=== PATIENT | female | born 1990 | race Native Hawaiian/Other Pacific Islander ===

== ENCOUNTER → 2017-05-14 | Outpatient (CLI) | payer OTHER ==
--- NOTE | 2017-05-14 11:51 | Diagnostic Imaging Report ---
PROCEDURE: US OB SINGLE FETUS <14 WKS. TECHNIQUE: Multiple real-time grayscale images were obtained over the gravid uterus in various projections. INDICATION: Vaginal spotting, threatened miscarriage. FINDINGS; There is an intrauterine fluid collection compatible with a gestational sac. Yolk sac is present. A pole is present with a crown rump length of 0.74 cm with an estimated age of 6 weeks 5 days. cardiac activity is 120 beats per minutes. No suggestion for abnormal perigestational fluid collections. The ovaries are not visualized. IMPRESSION: Findings compatible with early viable intrauterine , estimated age 6 weeks 5 days for an estimated date of delivery January 02, 2018. Dictated by: Dictated on workstation # [id number]
== END ==
LOC: RAD 10:47
PROVIDERS: ATTEND Family Medicine
DX: O20.0 Threatened abortion (principal); Z3A.01 Less than 8 weeks gestation of pregnancy
CPT/HCPCS: 76801

== ENCOUNTER → 2017-09-03 | Outpatient (CLI) | payer OTHER ==
--- NOTE | 2017-09-03 14:37 | Diagnostic Imaging Report ---
INDICATION: survey. TECHNIQUE: Multiple real-time grayscale images were obtained over the gravid uterus. COMPARISON: 05/14/2017 FINDINGS: Single live intrauterine fetus is seen measuring 22 weeks 0 days in size, this is within a few days of the expected dates. Fetus is in breech presentation at this time. Amniotic fluid is borderline low with index of 7.4 cm. The placenta is grade 1 and anterior with no evidence of previa. heart rate is 167 beats per minute. survey showed no detectable abnormalities although four-chamber heart view and spine and cord insertion were not well seen due to positioning. kidneys and bladder, stomach and ventricles and three-vessel cord were all unremarkable. Biometrical measurements are as follows: Biparietal 5.3 cm, age 22 weeks 0 days. Head circumference 20.5 cm, age 22 weeks 4 days. Abdominal circumference 16.4 cm, age 21 weeks 4 days. Femur length 3.7 cm, age 21 weeks 6 days. Sonographic estimate age: 22 weeks 0 days. Sonographic estimated date of delivery: 01/07/18. Estimated Weight: 445 gm (+/- 65 gm). LMP percentile: 11%. heart rate: 167 beats per minute. number: 1 of 1. IMPRESSION: Single live intrauterine fetus measuring 22 weeks 0 days in size, dates are within a few days expected from previous dates. survey showed no detectable abnormality although there was some limitation as above with four-chamber heart view and spine and cord insertion not well-seen on this study. Consider limited followup as clinically warranted. Amniotic fluid index was borderline at 7.4 cm. Dictated by: Dictated on workstation # [id number]
== END ==
LOC: RAD 11:01
PROVIDERS: ATTEND Family Medicine
DX: Z34.92 Encounter for supervision of normal pregnancy, unspecified, second trimester (principal); Z3A.22 22 weeks gestation of pregnancy
CPT/HCPCS: 76805

== ENCOUNTER → 2017-10-06 | Outpatient (CLI) | payer OTHER ==
--- NOTE | 2017-10-06 12:18 | Diagnostic Imaging Report ---
INDICATION: Followup exam. TECHNIQUE: Multiple Real-time grayscale images were obtained over the gravid uterus. COMPARISON: 05/14/2017 and 09/03/2017. FINDINGS: The previous OB ultrasound exam of 09/03/2017 noted a single live fetus of approximately 22 weeks gestation plus/minus 1 week. There were no abnormalities identified but the four-chamber heart view, spine, and cord insertion were not well visualized. On this exam, the four-chamber heart view and the spine were identified and appear to be within normal limits. The cord insertion is still difficult to assess due to the position. The fetus is now in breech presentation. heart motion was noted and a rate of 140 BPM was recorded. On the prior exam, the amniotic fluid index was just below the normal limits at 7.4. The amniotic fluid index has increased since the prior exam and is now 14.4 (normal 8 to 22 cm). The placenta is anterior and there is no previa. The growth parameters were not obtained for today's study. IMPRESSION: 1. There is a single live fetus in breech presentation at approximately 27 weeks 2 days gestation plus/minus 1 week. The EDC is 01/02/2018. 2. There were no abnormalities identified. In particular, the four chamber heart and spine are within normal limits; however, the cord insertion is still difficult to visualize due to the position. 3. The amniotic fluid volume is now well within normal limits. Dictated by: Dictated on workstation # [id number]
== END ==
LOC: RAD 10:09
PROVIDERS: ATTEND Family Medicine
DX: Z34.02 Encounter for supervision of normal first pregnancy, second trimester (principal); Z3A.27 27 weeks gestation of pregnancy
CPT/HCPCS: 76816

== ENCOUNTER → 2017-10-08 | Outpatient (CLI) | payer SELFPAY | LOC: LAB 09:27 | PROVIDERS: ATTEND Family Medicine | DX: O99.810 Abnormal glucose complicating pregnancy (principal) | CPT/HCPCS: 36415; 82951; 82952; 82962 ==

== ENCOUNTER → 2017-11-03 | Outpatient (CLI) | payer OTHER ==
--- NOTE | 2017-11-03 15:33 | Diagnostic Imaging Report ---
INDICATION: Evaluate cord insertion. TECHNIQUE: Multiple real-time grayscale images were obtained over the gravid uterus. FINDINGS: A single live fetus is identified with heart rate recorded at 144 beats per minute. Placenta is anterior. Amniotic fluid volume is normal. cord insertion was visualized today and appears to be within normal limits. IMPRESSION: Unremarkable limited obstetrical ultrasound demonstrating an unremarkable cord insertion. Dictated by: Dictated on workstation # [id number]
== END ==
LOC: RAD 13:00
PROVIDERS: ATTEND Family Medicine
DX: Z36.2 Encounter for other antenatal screening follow-up (principal)
CPT/HCPCS: 76816

== ENCOUNTER → 2017-12-07 | Outpatient (CLI) | payer OTHER ==
--- NOTE | 2017-12-07 17:46 | Diagnostic Imaging Report ---
TIME OF STUDY: 12/07/2017 5:38 PM INDICATION: ANTEPARTUM TACHYCARDIA COMPARISON: 11/03/2017. TECHNIQUE: Transabdominal sonogram was performed. GESTATIONAL AGE: 31 weeks, 3 days. GENERAL EVALUATION: Presentation: Cephalic. Placenta: Anterior Cardiac activity: 155 bpm Amniotic fluid index: The total CLOVIS is 8.6 cm. The largest vertical pocket measures 3.4 cm. BIOPHYSICAL PROFILE SCORING: tone: 2 movement: 2 breathin Amniotic fluid: 2 TOTAL SCORE: 8 out of 8. FINDINGS/IMPRESSION: 1. Single live intrauterine gestation with biophysical profile score of 8 out of 8. No gross abnormalities are detected. heart rate is 155 bpm. Total CLOVIS is 8.6 cm. Dictated by: Dictated on workstation # [id number]
== END ==
LOC: RAD 17:01
PROVIDERS: ATTEND Family Medicine
DX: Z34.93 Encounter for supervision of normal pregnancy, unspecified, third trimester (principal); Z3A.31 31 weeks gestation of pregnancy
CPT/HCPCS: 76819

== ENCOUNTER 2017-12-27 22:03 | Inpatient (IN) | payer OTHER ==
[~2017-12-27] VITALS: Ht 165.1 cm; Wt 105.2 kg
[2017-12-27] MEDS ORDERED: PREN1TAB86 PO (22:14)
[2017-12-27] MEDS ORDERED: OXYTOCIN/NORMAL SALINE 500 ML IV ONE (22:23)
[2017-12-27] MEDS ORDERED: D5 LR IV SOLUTION 1,000 ML IV ONE (22:23)
[2017-12-27 22:25] LABS: BILIRUBIN,URINE NEGATIVE (NEGATIVE); CLARITY,URINE CLEAR; COLOR,URINE YELLOW; GLUCOSE, URINE (UA) NEGATIVE (NEGATIVE); KETONES,URINE NEGATIVE (NEGATIVE); LEUKOCYTE ESTERASE ,URINE 3+ (NEGATIVE); NITRITE,URINE NEGATIVE (NEGATIVE); PH,URINE 6 (5-9); PROTEIN,URINE 1+ (NEGATIVE); UROBILINOGEN,URINE 1 MG/DL (NORMAL)
[2017-12-27] MEDS ORDERED: LIDOCAINE/EPI 2% 1:200,00 (XYLOCAINE) 10 ML VIAL ONE (22:37)
[2017-12-27] MEDS ORDERED: D5 LR IV SOLUTION 1,000 ML IV SCH (22:41)
--- OUTSIDE RECORDS SUMMARY | 2017-12-27 22:44 | XMS REPORT | Continuity of Care Document ---
Author Author [facility] [place] Address Unknown Phone Unavailable Allergies There is no data. Medications There is no data. Problems Date Dx Coded Attending Type Code Diagnosis Diagnosed By 10/01/2013 GAUTAM MCCLAIN DO 789.00 ABDOMINAL PAIN UNSPECIFIED SITE 05/28/2017 MARYA ELY MD Ot O20.0 THREATENED 05/28/2017 MARYA ELY MD Ot Z3A.01 LESS THAN 8 WEEKS GESTATION OF 09/03/2017 MARYA ELY MD Ot O20.0 THREATENED 09/03/2017 MARYA ELY MD Ot Z3A.01 LESS THAN 8 WEEKS GESTATION OF 09/17/2017 MARYA ELY MD Ot Z34.92 ENCNTR FOR SUPRVSN OF NORMAL PREG, UNSP, 09/17/2017 MARYA ELY MD Ot Z3A.22 22 WEEKS GESTATION OF 10/08/2017 MARYA ELY MD Ot O20.0 THREATENED 10/08/2017 MARYA ELY MD Ot Z3A.01 LESS THAN 8 WEEKS GESTATION OF 10/08/2017 MARYA ELY MD Ot Z34.92 ENCNTR FOR SUPRVSN OF NORMAL PREG, UNSP, 10/08/2017 MARYA ELY MD Ot Z3A.22 22 WEEKS GESTATION OF 10/08/2017 MARYA ELY MD Ot Z34.02 ENCNTR FOR SUPRVSN OF NORMAL FIRST PREG, 10/08/2017 MARYA ELY MD Ot Z3A.27 27 WEEKS GESTATION OF 10/09/2017 MARYA ELY MD Ot O99.810 ABNORMAL GLUCOSE COMPLICATING 10/21/2017 MARYA ELY MD Ot Z34.02 ENCNTR FOR SUPRVSN OF NORMAL FIRST PREG, 10/21/2017 MARYA ELY MD Ot Z3A.27 27 WEEKS GESTATION OF 11/03/2017 MARYA ELY MD, Ot O20.0 THREATENED 11/03/2017 MARYA ELY MD, Ot Z3A.01 LESS THAN 8 WEEKS GESTATION OF 11/03/2017 MARYA ELY MD, Ot Z34.92 ENCNTR FOR SUPRVSN OF NORMAL PREG, UNSP, 11/03/2017 MARYA ELY MD, Ot Z3A.22 22 WEEKS GESTATION OF 11/03/2017 MARYA ELY MD, Ot Z34.02 ENCNTR FOR SUPRVSN OF NORMAL FIRST PREG, 11/03/2017 MARYA ELY MD, Ot Z3A.27 27 WEEKS GESTATION OF 11/03/2017 MARYA ELY MD, Ot O99.810 ABNORMAL GLUCOSE COMPLICATING 11/04/2017 MARYA ELY MD, Ot Z36.2 ENCOUNTER FOR OTHER SCREENING 11/18/2017 MARYA ELY MD, Ot Z36.2 ENCOUNTER FOR OTHER SCREENING 12/08/2017 MARYA ELY MD, Ot O36.8390 MATERN CARE FOR ABNLT FETL HRT RATE OR R 12/08/2017 MARYA ELY MD, Ot Z34.93 ENCNTR FOR SUPRVSN OF NORMAL PREG, UNSP, 12/08/2017 MARYA ELY MD, Ot Z3A.31 31 WEEKS GESTATION OF Procedures There is no data. Results Test Result Range Genital Culture, Routine - 05/14/17 13:46 Genital Culture, Routine Note Urine Culture, Routine - 05/14/17 13:46 Urine Culture, Routine Note CULTURE, GENITAL - 05/14/17 13:46 Genital Culture, Routine Final report NRG Result 1 NRG CULTURE, URINE - 05/14/17 13:46 Urine Culture, Routine Final report NRG Result 1 Klebsiella pneumoniae NRG Antimicrobial Susceptibility NRG PDF Report - 05/14/17 13:48 PDF Report1 LCLS NRG Pap Lb, rfx HPV ASCU - 05/14/17 13:48 DIAGNOSIS: Comment Specimen adequacy: Comment Clinician provided ICD10: Comment Performed by: Comment . . Note: Comment . Comment CBC With Differential/Platelet - 06/11/17 14:04 WBC 7.1 x10E3/uL 3.4-10.8 RBC 4.70 x10E6/uL 3.77-5.28 Hemoglobin 12.6 g/dL 11.1-15.9 Hematocrit 37.6 % 34.0-46.6 MCV 80 fL 79-97 MCH 26.8 pg 26.6-33.0 MCHC 33.5 g/dL 31.5-35.7 RDW 15.0 % 12.3-15.4 Platelets 262 x10E3/uL 150-379 Neutrophils 70 % Lymphs 21 % Monocytes 7 % Eos 1 % Basos 1 % Neutrophils (Absolute) 4.9 x10E3/uL 1.4-7.0 Lymphs (Absolute) 1.5 x10E3/uL 0.7-3.1 Monocytes(Absolute) 0.5 x10E3/uL 0.1-0.9 Eos (Absolute) 0.1 x10E3/uL 0.0-0.4 Baso (Absolute) 0.0 x10E3/uL 0.0-0.2 Immature Granulocytes 0 % Immature Grans (Abs) 0.0 x10E3/uL 0.0-0.1 ABO Grouping and Rho(D) Typing - 06/11/17 14:04 ABO Grouping B Rh Factor Positive TSH - 06/11/17 14:04 TSH 0.311 uIU/mL 0.450-4.500 Rubella Antibodies, IgG - 06/11/17 14:04 Rubella Antibodies, IgG <0.90 index Immune >0.99 Antibody Screen - 06/11/17 14:04 Antibody Screen Negative Negative Urine Culture, Routine - 06/11/17 14:04 Urine Culture, Routine Note RUBELLA ANTIBODIES, IgG - 06/11/17 14:04 Rubella Antibodies, IgG <0.90 index Immune >0.99 CULTURE, URINE - 06/11/17 14:04 Urine Culture, Routine Final report NRG Result 1 No growth NRG AFP Tetra - 07/17/17 09:09 Results Report Test Results: *Screen Negative* Gest. Age on Collection Date 17.7 WEEKS Gestat. Age Based On LMP Maternal Age At LONG 27.6 YEARS Race Other Weight 209 lbs Insulin Dep Diabetes No Multiple Gestation Comment AFP Value 22.5 ng/mL AFP MoM 0.67 hCG Value 65810 mIU/mL hCG MoM 1.35 uE3 Value 0.52 ng/mL uE3 MoM 0.46 APRIL Value 97.37 pg/mL APRIL MoM 0.68 [place] [address] DSR (Second Trimester) 1 IN 574 DSR (By Age) 1 IN 885 T18 Risk Not increased T18 (By Age) 1:3447 Interpretation Comment PDF . Comments: Comment TETRA SCREEN - 07/17/17 09:09 Results Report NRG Test Results: *Screen Negative* NRG Gest. Age on Collection Date 17.7 WEEKS NRG Gestat. Age Based On LMP NRG Maternal Age At LONG 27.6 YEARS NRG Race Other NRG Weight 209 lbs NRG Insulin Dep Diabetes No NRG Multiple Gestation NRG AFP Value 22.5 ng/mL NRG AFP MoM 0.67 NRG hCG Value 40460 mIU/mL NRG hCG MoM 1.35 NRG uE3 Value 0.52 ng/mL NRG uE3 MoM 0.46 NRG APRIL Value 97.37 pg/mL NRG APRIL MoM 0.68 NR[place] [address] NRG DSR (Second Trimester) 1 IN 574 NRG DSR (By Age) 1 IN 885 NRG T18 Risk Not increased NRG T18 (By Age) 1:3447 NRG Interpretation NRG Comments: NRG PDF . NRG CBC - 09/29/17 09:55 WHITE BLOOD CELL COUNT 9.2 Thousand/uL 3.8-10.8 RED BLOOD CELL COUNT 4.31 Million/uL 3.80-5.10 HEMOGLOBIN 11.8 g/dL 11.7-15.5 HEMATOCRIT 36.2 % 35.0-45.0 MCV 84.0 fL 80.0-100.0 MCH 27.4 pg 27.0-33.0 MCHC 32.6 g/dL 32.0-36.0 RDW 12.9 % 11.0-15.0 PLATELET COUNT 283 Thousand/uL 140-400 MPV 9.6 fL 7.5-12.5 ABSOLUTE NEUTROPHILS 6624 cells/uL 9781-3355 ABSOLUTE LYMPHOCYTES 1960 cells/uL 850-3900 ABSOLUTE MONOCYTES 405 cells/uL 200-950 ABSOLUTE EOSINOPHILS 138 cells/uL 15-500 ABSOLUTE BASOPHILS 74 cells/uL 0-200 NEUTROPHILS 72 % NRG LYMPHOCYTES 21.3 % NRG MONOCYTES 4.4 % NRG EOSINOPHILS 1.5 % NRG BASOPHILS 0.8 % NRG Capillary blood glucose measurement by glucometer (mass/volume) - 10/08/17 09: 44 Capillary blood glucose measurement by glucometer (mass/volume) 81 mg/dL 70-110 Serum or plasma glucose measurement 3 hours post challenge (mass/volume) - 09:46 Serum or plasma glucose measurement 3 hours post challenge (mass/volume) NRG CULTURE, GROUP B STREP (VAGINAL) - 12/07/17 16:04 STREPTOCOCCUS, GROUP B CULTURE SEE NOTE NRG Encounters ACCT No. Visit Date/Time Discharge Status Pt. Type Provider Facility Loc./Unit Complaint [id number] 10/01/2013 09:47:00 10/01/2013 23:59:59 CLS Outpatient JOHNY GAUTAM MURPHY [id number] 06/12/2017 14:09:00 Document Registration [id number] 05/17/2017 10:06:00 Document Registration [id number] 05/16/2017 20:06:00 Document Registration [id number] 06/13/2017 03:07:00 Document Registration [id number] 07/20/2017 22:07:00 Document Registration [id number] 12/24/2017 14:20:00 12/24/2017 23:59:59 CLS Outpatient NILA MARCUS [facility] [id number] 12/07/2017 14:20:00 Document Registration [id number] 09/29/2017 08:40:00 Document Registration [id number] 07/17/2017 08:20:00 Document Registration [id number] 06/11/2017 13:20:00 Document Registration [id number] 05/14/2017 09:00:00 Document Registration [id number] 12/07/2017 17:01:00 12/07/2017 23:59:59 CLS Outpatient MARYA ELY MD [facility] RAD Z34.93,O36.8390 [id number] 11/03/2017 13:00:00 11/03/2017 23:59:59 CLS Outpatient MARYA ELY MD [facility] RAD Z36.2 [id number] 10/08/2017 09:27:00 10/08/2017 23:59:59 CLS Outpatient MARYA ELY MD [facility] LAB O99.810 [id number] 10/06/2017 10:09:00 10/06/2017 23:59:59 CLS Outpatient MARYA ELY MD [facility] RAD CARE [id number] 09/03/2017 11:01:00 09/03/2017 23:59:59 CLS Outpatient MARYA ELY MD [facility] RAD 21 WKS GESTATION OF [id number] 05/14/2017 10:47:00 05/14/2017 23:59:59 CLS Outpatient MARYA ELY MD [facility] RAD 020.0 THREATENED MISCARRIAGE [id number] 05/19/2017 16:07:00 Document Registration
[2017-12-27 22:45] VITALS: BP 113/70
[2017-12-27] MEDS ORDERED: MINERAL OIL CONCENTRATE 99.9% 15 ML UDC TOP PRN (22:45)
[2017-12-27 22:46] LABS: BACTERIA,URINE MODERATE /HPF
[2017-12-27 23:00] VITALS: BP 138/73
--- NOTE | 2017-12-27 23:03 | History & Physical-OB ---
OB - Chief Complaint & HPI Date/Time Date of Admission: Date of Admission: Dec 27, 2017 at 10:09 pm Time Seen by Provider: 23:09 Chief Complaint/History OB-Reason for Admission/Chief: Onset of Labor Hx : 1 Hx Para: 0 Expected Date of Delivery: Jan 03, 2018 Gestational Age in Weeks: 39 Gestational Age in Days: 0 Admission Nurse Assessment Rev: Yes History of Labs B+, antibody neg, RNI, Hep B/HIV/RPR NR, GC/chlamydia neg. 1 hr Glucola normal. GBS neg. Allergies and Home Medications Allergies Coded Allergies: No Known Drug Allergies (Unverified , 12/27/17) Home Medications Vit W-Ca,Fe,FA(<1 mg) 1 Each Tablet, 1 EACH PO DAILY, (Reported) Patient Home Medication List Home Medication List Reviewed: Yes OB - History Hx of Present Care: Yes Ultrasounds: Normal mid trimester US Obstetrical Complications: None Medical Complications: None Information Induced Hypertension: No Maternal Gestational Diabetes: No Hemorrhage: No Obstetrical History Hx : 1 Hx Para: 0 Hx # Term Pregnancies: 0 Hx # Pregnancies: 0 Number of Living Children: 0 Hx Termination: No Hx Multiple Gestation: No Hx Ectopic : No Hx Stillbirth: No Hx Complication: No Hx Induced Hypertens: No Hx Maternal Gestational Diabet: No Hx Hemorrhage: No Delivery History Hx Dystocia: No Hx Forceps Assisted Delivery: No Hx Vacuum Extraction Assisted: No Hx Placenta Abnormality: No Hx Distress: No Hx Large For Gestational Age I: No Hx Small for Gestational Age I: No Hx Section: No Hx Vaginal Delivery Post C-Sec: No Hx Blood Disorders: No Adverse Rxn to Tranfusion: No Patient Past Medical History PMHx: Denies SurgHx: Denies Social History/Family History HIV/AIDS: No Recent Infectious Disease Expo: No Sexually Transmitted Disease: No Alcohol Use: Denies Use Recreational Drug Use: No Smoking Cessation: Never smoker Immunizations Tetanus Booster (TDap): Less than 5yrs Rubella: not immune RPR/VDRL: Negative GBS Status: Negative HBsAG: Negative OB - Admission Exam Physical Exam Abdomen: Non tender Extremities: Edema (trace) Cervical Dilatation: 7cm Effacement: Other (805) Membranes: Ruptured (AROM done at time of exam) Amniotic Fluid: Clear Heart Rate: 150's Decelerations: Variable Decelerations Short Term Variability: Present Skilled Nursing Variability: Average (6-25) Contractions on Admission: < 5 Minutes Apart Date/Time Contractions Began;: 12/27/2017 Frequency of Contractions: every 3 minutes Labs Laboratory Tests Test 12/27/17 22:15 Range/Units Urine Color YELLOW Urine Clarity CLEAR Urine pH 6 5-9 Urine Specific [place] 1.020 1.016-1.022 Urine Protein 1+ H NEGATIVE Urine Glucose (UA) NEGATIVE NEGATIVE Urine Ketones NEGATIVE NEGATIVE Urine Nitrite NEGATIVE NEGATIVE Urine Bilirubin NEGATIVE NEGATIVE Urine Urobilinogen 1 NORMAL MG/DL Urine Leukocyte Esterase 3+ H NEGATIVE Urine RBC (Auto) 2+ H NEGATIVE Urine RBC 10-25 H /HPF Urine WBC 10-25 H /HPF Urine Squamous Epithelial Cells 5-10 /HPF Urine Crystals NONE /LPF Urine Bacteria MODERATE H /HPF Urine Casts NONE /LPF Urine Mucus MODERATE H /LPF Urine Culture Indicated NO OB - Assessment/Plan/Diagnosis Assessment Assessment: active labor Admission Dx Active labor TIUP at 39 weeks gestation Admission Status: Inpatient Order (span 2 midnights) Reason for Inpatient Admission: Labor and delivery with course Plan Plan: Expectant Management MARYA ELY MD Dec 27, 2017 11:03 pm
[2017-12-27 23:04] LABS: BASOPHILS % (AUTO) 0 % (0-10); EOSINOPHILS # (AUTO) 0.1 10^3/uL (0.0-0.3); EOSINOPHILS % (AUTO) 0 % (0-10); HEMATOCRIT 36 % (35-52); HEMOGLOBIN 12.7 G/DL (11.5-16.0); LYMPHOCYTES # (AUTO) 1.3 X 10^3 (1.0-4.0); LYMPHOCYTES % (AUTO) 8 % (12-44); MEAN CORPUSCULAR HEMOGLOBIN 27 PG (25-34); MEAN CORPUSCULAR HGB CONC 36 G/DL (32-36); MEAN CORPUSCULAR VOLUME 75 FL (80-99); MEAN PLATELET VOLUME 9.3 FL (7.4-10.4); MONOCYTES # (AUTO) 0.7 X 10^3 (0.0-1.0); MONOCYTES % (AUTO) 5 % (0-12); NEUTROPHILS # (AUTO) 14.3 X 10^3 (1.8-7.8); NEUTROPHILS % (AUTO) 87 % (42-75); PLATELET COUNT 301 10^3/uL (130-400); RED BLOOD COUNT 4.74 10^6/uL (4.35-5.85); RED CELL DISTRIBUTION WIDTH 13.6 % (10.0-14.5); WHITE BLOOD COUNT 16.4 10^3/uL (4.3-11.0)
[2017-12-28] VITALS (12 sets, daily range): BP systolic 109–127; BP diastolic 56–76
--- NOTE | 2017-12-28 01:00 | OB Labor & Delivery Record ---
Vag Delivery Note Vag Delivery Note Date of Delivery: 12/28/17 Preoperative Diagnosis: Amirah Dawn is a (27 /Para 1 / 0, Gestational Age (wks)39with [] Postoperative Diagnosis: Same Surgeon: MARYA ELY Anesthesia: None Delivery Type: spontaneous vaginal Findings: Viable female , apgars 8/9, weight 6#7 Lacerations: first degree perineal, bilateral periurethral, supraurethral Intact placenta with 3 vessel cord. No nuchal cord, body cord or shoulder dystocia Estimated Blood Loss: 300 ml Complications: None Condition: Stable Description of Procedure: The patient is a 27 yo G1 who presented in active labor. She was admitted and informed consent was obtained. Her labor course was unremarkable. She progressed to complete dilatation and began to push. She was then set up for delivery. The 's head was delivered atraumatically in the CAITLIN position. The shoulders and remainder of the 's body were then delivered without difficulty. Upon delivery, the was placed on maternal abdomen and the mouth and nares were bulb suctioned. After a delay, the cord was doubly clamped and cut and the was handed off to the pediatric staff. An intact placenta with 3-vessel cord delivered via Frances and there was found to be minimal bleeding.~ Vigorous fundal massage was performed and the fundus was found to be firm. IV oxytocin was given. Examination of the vagina and perineum revealed a first degree perineal laceration, bilateral periurethral lacerations and a supraurethral laceration. Perineal laceration repaired in the usual fashion with 3-0 rapide suture. Bilateral periurethral abrasions repaired in simple running fashion with 3-0 rapide and after placement of red manju catheter, suprapurethral laceration was repaired in running fashion with 3-0 rapide. Following the repair, sponge, instrument and needle counts were correct. Mom and baby were both in stable condition in the labor suite. Vitals - Labs Labs Laboratory Tests 12/27/17 22:15: Urine Color YELLOW, Urine Clarity CLEAR, Urine pH 6, Urine Specific [place] 1.020, Urine Protein 1+H, Urine Glucose (UA) NEGATIVE, Urine Ketones NEGATIVE, Urine Nitrite NEGATIVE, Urine Bilirubin NEGATIVE, Urine Urobilinogen 1, Urine Leukocyte Esterase 3+H, Urine RBC (Auto) 2+H, Urine RBC 10-25H, Urine WBC 10-25H , Urine Squamous Epithelial Cells 5-10, Urine Crystals NONE, Urine Bacteria MODERATEH, Urine Casts NONE, Urine Mucus MODERATEH, Urine Culture Indicated NO 12/27/17 22:50: White Blood Count 16.4H, Red Blood Count 4.74, Hemoglobin 12.7, Hematocrit 36, Mean Corpuscular Volume 75L, Mean Corpuscular Hemoglobin 27, Mean Corpuscular Hemoglobin Concent 36, Red Cell Distribution Width 13.6, Platelet Count 301, Mean Platelet Volume 9.3, Neutrophils (%) (Auto) 87H, Lymphocytes (%) (Auto) 8L , Monocytes (%) (Auto) 5, Eosinophils (%) (Auto) 0, Basophils (%) (Auto) 0, Neutrophils # (Auto) 14.3H, Lymphocytes # (Auto) 1.3, Monocytes # (Auto) 0.7, Eosinophils # (Auto) 0.1, Basophils # (Auto) 0.0 MARYA ELY MD Dec 28, 2017 1:00 am
[2017-12-28] MEDS ORDERED: OXYTOCIN/NORMAL SALINE 500 ML IV SCH (02:59)
[2017-12-28] MEDS ORDERED: WITCH HAZEL(TUCKS) 40 EA JAR TOP PRN (03:00)
[2017-12-28] MEDS ORDERED: BENZOCAINE/MENTHOL (DERMOPLAST) 56 ML CAN TP PRN (03:00)
[2017-12-28] MEDS ORDERED: MEASLES,MUMPS,RUBELLA 1 EA INJ SQ ONE (03:00)
[2017-12-28] MEDS ORDERED: CATHETER FLUSH 10 ML SYR IV SCH ×2 (06:00)
[2017-12-28] MEDS ORDERED: PRENATAL VITAMIN 1 EA TAB PO SCH (07:00)
[2017-12-28] MEDS ORDERED: MEASLES,MUMPS,RUBELLA 1 EA INJ ONE (08:19)
[2017-12-28] MEDS: PRENATAL VITAMIN 1 EA TAB PO SCH (08:19)
[2017-12-28] MEDS: IBUPROFEN 600 MG (MOTRIN) TAB PO SCH ×3 (08:20→20:41)
--- NOTE | 2017-12-28 13:52 | Progress Note (SOAP) ---
Subjective Subjective/Events-last exam Patient doing well this AM. Lochia same as period. Tolerating ambulation. Breast feeding well. Pain well controlled on PO meds. Review of Systems Date Seen by Provider: Dec 28, 2017 Time Seen by Provider: 12:15 HEENT: No Head Aches, No Visual Changes Cardiovascular: No: Chest Pain, Palpitations Objective Exam Last Set of Vital Signs Vital Signs Date Time Temp Pulse Resp B/P (MAP) Pulse Ox O2 Delivery O2 Flow Rate FiO2 12/28/17 12:14 98.4 85 16 110/75 (87) 99 Room Air Capillary Refill : I&O Intake and Output 12/28/17 00:00 Daily Weight Change No General: Alert, Oriented X3, Cooperative, No Acute Distress Lungs: Clear to Auscultation, Normal Air Movement Heart: Regular Rate, No Murmurs Abdomen: Normal Bowel Sounds, Soft, No Tenderness, No Hepatosplenomegaly, No Masses, Other (Fundus firm below umbilcus) Extremities: No Edema Results/Procedures Lab Laboratory Tests 12/27/17 22:15: Urine Color YELLOW, Urine Clarity CLEAR, Urine pH 6, Urine Specific [place] 1.020, Urine Protein 1+H, Urine Glucose (UA) NEGATIVE, Urine Ketones NEGATIVE, Urine Nitrite NEGATIVE, Urine Bilirubin NEGATIVE, Urine Urobilinogen 1, Urine Leukocyte Esterase 3+H, Urine RBC (Auto) 2+H, Urine RBC 10-25H, Urine WBC 10-25H , Urine Squamous Epithelial Cells 5-10, Urine Crystals NONE, Urine Bacteria MODERATEH, Urine Casts NONE, Urine Mucus MODERATEH, Urine Culture Indicated NO 12/27/17 22:50: White Blood Count 16.4H, Red Blood Count 4.74, Hemoglobin 12.7, Hematocrit 36, Mean Corpuscular Volume 75L, Mean Corpuscular Hemoglobin 27, Mean Corpuscular Hemoglobin Concent 36, Red Cell Distribution Width 13.6, Platelet Count 301, Mean Platelet Volume 9.3, Neutrophils (%) (Auto) 87H, Lymphocytes (%) (Auto) 8L , Monocytes (%) (Auto) 5, Eosinophils (%) (Auto) 0, Basophils (%) (Auto) 0, Neutrophils # (Auto) 14.3H, Lymphocytes # (Auto) 1.3, Monocytes # (Auto) 0.7, Eosinophils # (Auto) 0.1, Basophils # (Auto) 0.0 Assessment/Plan Assessment/Plan Admission Status: Inpatient Order (span 2 midnights) Reason for Inpatient Admission: routine post care (1) Normal vaginal delivery Status: Acute Assessment & Plan: - Routine post care - Pain well controlled with PO meds - Encouraged ambulation - bleeding well controlled - Plan for d/c home tomorrow Clinical Quality Measures DVT/VTE Risk/Contraindication: Risk Factor Score Per Nursin RFS Level Per Nursing on Admit: 2=Moderate HARINDER TORRES MD Dec 28, 2017 13:52
[2017-12-29 02:40] VITALS: BP 108/69
[2017-12-29] MEDS: IBUPROFEN 600 MG (MOTRIN) TAB PO SCH ×2 (02:40→08:38)
[2017-12-29 05:42] LABS: BASOPHILS # (AUTO) 0.1 10^3/uL (0.0-0.1); BASOPHILS % (AUTO) 1 % (0-10); EOSINOPHILS # (AUTO) 0.2 10^3/uL (0.0-0.3); EOSINOPHILS % (AUTO) 2 % (0-10); HEMATOCRIT 30 % (35-52); HEMOGLOBIN 10.6 G/DL (11.5-16.0); LYMPHOCYTES # (AUTO) 2.7 X 10^3 (1.0-4.0); LYMPHOCYTES % (AUTO) 21 % (12-44); MEAN CORPUSCULAR HEMOGLOBIN 27 PG (25-34); MEAN CORPUSCULAR HGB CONC 35 G/DL (32-36); MEAN CORPUSCULAR VOLUME 76 FL (80-99); MEAN PLATELET VOLUME 9.4 FL (7.4-10.4); MONOCYTES # (AUTO) 0.9 X 10^3 (0.0-1.0); MONOCYTES % (AUTO) 7 % (0-12); NEUTROPHILS # (AUTO) 9.1 X 10^3 (1.8-7.8); NEUTROPHILS % (AUTO) 71 % (42-75); PLATELET COUNT 253 10^3/uL (130-400); RED BLOOD COUNT 3.97 10^6/uL (4.35-5.85); RED CELL DISTRIBUTION WIDTH 13.5 % (10.0-14.5); WHITE BLOOD COUNT 12.9 10^3/uL (4.3-11.0)
[2017-12-29 08:30] VITALS: BP 115/74
[2017-12-29] MEDS: PRENATAL VITAMIN 1 EA TAB PO SCH (08:38)
--- NOTE | 2017-12-29 10:17 | Discharge Summary ---
Diagnosis/Chief Complaint Date of Admission Dec 27, 2017 at 22:09 Date of Discharge 12/29/2017 Admission Diagnosis Admission Diagnosis Term Active labor Discharge Diagnosis of term female infant to G1 now P1 mother at 39 wga Chief Complaint/HPI Chief Complaint/HPI Presented in Active labor Discharge Summary-Simple/Stand Procedures Discharge Physical Examination Allergies: Coded Allergies: No Known Drug Allergies (Unverified , 12/27/17) Vitals & I&Os Vital Sign - Last 12Hours Date Time Temp Pulse Resp B/P (MAP) Pulse Ox O2 Delivery O2 Flow Rate FiO2 12/29/17 08:30 98.8 80 18 115/74 (88) 99 Room Air General Appearance: Alert, Oriented X3, Cooperative, No Acute Distress HEENT: Mucous Memb Moist/Datto Respiratory: Clear to Auscultation, Normal Air Movement Cardiovascular: Regular Rate, No Murmurs Abdominal: Normal Bowel Sounds, Soft, No Tenderness, No Hepatosplenomegaly, No Masses, Other (Fundus firm and below umbilicus) Extremities: No Edema, No Tenderness/Swelling Neuro: Normal Speech Psych/Mental Status: Mental Status NL, Mood NL Hospital Course See final discharge diagnosis. Discussion & Recommendations of term female infant of G1 now P1 mother @ 39 wga Discharge Condition at discharge stable Instructions to patient/family Please see electronic discharge instructions given to patient. Discharge Medications Reviewed and agree with Discharge Medication list on patient's Discharge Instruction sheet Clinical Quality Measures DVT/VTE Risk/Contraindication: Risk Factor Score Per Nursin RFS Level Per Nursing on Admit: 2=Moderate Copy Copies To 1: MARYA ELY MD, HOLLY R MD Dec 29, 2017 10:17
[2017-12-29] MEDS ORDERED: IBUP-1773 PO (10:18)
--- NOTE | 2017-12-29 10:19 | Discharge Instructions ---
Discharge Inst-Women's Serv Depart Medications New, Converted or Re-Newed RX: RX on Chart New Medications: Ibuprofen (Ibuprofen) 600 Mg Tablet 600 MG PO Q6H PRN for PAIN-MILD TO MODERATE, #90 TAB Continued Medications: Vit W-Ca,Fe,FA(<1 mg) ( Vitamins) 1 Each Tablet 1 EACH PO DAILY, TAB Follow Up/Instructions Goal/Follow Up: 6 week post followup with Dr Carr Activity Activity: Activity as Tolerated Driving Instructions: You May Drive NO SMOKING: NO SMOKING Nothing Inside Vagina: No Douching, No Navy, No Tampons Diet Discharge Diet: No Restrictions Symptoms to Report to : Swelling Increased, Bleeding Excessive, Pain Increased For Any Problems or Questions: Contact Your Physician Copies To 1: MARYA CARR MD, HOLLY R MD Dec 29, 2017 10:19
[2017-12-29 12:40] VITALS: BP 115/74
== END 2017-12-29 12:40 | disposition home or self-care (01) | DRG 775 ==
LOC: LDRP 22:03 → WSo 22:03 → LDRP 22:09
PROVIDERS: ADMIT Family Medicine; ATTEND Family Medicine
PROC: 10E0XZZ Delivery of Products of Conception, External Approach (ICD-10-PCS; principal; 2017-12-28)
PROC: 0HQ9XZZ Repair Perineum Skin, External Approach (ICD-10-PCS; 2017-12-28)
PROC: 0UQMXZZ Repair Vulva, External Approach (ICD-10-PCS; 2017-12-28)
DX: O70.0 First degree perineal laceration during delivery (principal); O71.82 Other specified trauma to perineum and vulva; Z3A.39 39 weeks gestation of pregnancy; Z37.0 Single live birth; Z23 Encounter for immunization
CPT/HCPCS: 36415; 81000; 85025; 86850; 86900; 86901; 87088; 90707; 99212

== ENCOUNTER 2020-01-03 07:11 | Emergency (ER) | payer BC, OTHER ==
[~2020-01-03] VITALS: Ht 165 cm; Wt 99.0 kg
[~2020-01-03 07:11] MED LIST: IBUP-1773 PO; PREN1TAB86 PO
--- OUTSIDE RECORDS SUMMARY | 2020-01-03 07:17 | XMS REPORT ---
Author Author Amirah Gaytan Doctor Organization [facility] Address Unknown Phone Unavailable Care Team Providers Care Government Affairs Manager Name Role Phone Migration, Doctor Unavailable Unavailable PROBLEMS Type Condition ICD9-CM Code [id number] Code Onset Dates Condition S tatus SNOMED Code Problem Need for rubella vaccination Z23 A ctive [id number] ALLERGIES No Information ENCOUNTERS Encounter Location Date Diagnosis [place] [address] [address] [place] [id number] [address] [place] [phone] Feb, Evaluation regarding contrac eption options Z30.09 and examination following vaginal delivery Z39.2 [place] [address] [address] [place] [id number] [address] [place] [phone] Dec, care in third trime ster Z34.93 and 38 weeks gestation of Z3A.38 [place] [address] [address] [place] [id number] [address] [place] [phone] Nov, Third trimester Z3 4.93 and 37 weeks gestation of Z3A.37 [place] [address] [address] [place] [id number] [address] [place] [phone] Nov, screening for stre ptococcus B Z36.85 ; care in third trimester Z34.93 and Antepartum tachycardia affecting care of mother O36.8390 [place] [address] [address] [place] [id number] [address] [place] [phone] Nov, [place] [address] [address] [place] [id number] [address] [place] [phone] Nov, care in third trime ster Z34.93 and 34 weeks gestation of Z3A.34 [place] [address] [address] [place] [id number] [address] [place] [phone] Oct, care in third trime ster Z34.93 and 32 weeks gestation of Z3A.32 [place] [address] [address] [facility] [id number] [address] [place] [phone] 08 Oct, 2017 care in third trime ster Z34.93 ; Evaluate anatomy not seen on prior sonogram Z36.2 ; Breech presentation, single or unspecified fetus O32.1XX0 ; 30 weeks gestation of Z3A.30 and Encounter for immunization Z23 [place] [address] [address] [facility] [id number] [address] [place] [phone] 15 Sep, 2017 Abnormal glucose tolerance i n O99.810 and Abnormal glucose tolerance test in O99.810 [place] [address] [address] [facility] [id number] [address] [place] [phone] 09 Sep, 2017 26 weeks gestation of pregna ncy Z3A.26 ; Diabetes mellitus screening Z13.1 ; Second trimester Z34.92 and Evaluate anatomy not seen on prior sonogram Z36.2 [place] [address] [address] [facility] [id number] [address] [place] [phone] Aug, care, first pregnan cy in second trimester Z34.02 [place] [address] [address] [facility] [id number] [address] [place] [phone] 07 Aug, 2017 21 weeks gestation of pregna ncy Z3A.21 and care, first in second trimester Z34.02 [place] [address] [address] [facility] [id number] [address] [place] [phone] Jun, care, first pregnan cy in second trimester Z34.02 and 15 weeks gestation of Z3A.15 [place] [address] [address] [facility] [id number] [address] [place] [phone] May, Threatened miscarriage O20.0 ; Urinary tract infection in mother during first trimester of O23.41 and 10 weeks gestation of Z3A.10 [place] [address] [id number] [address] [place] [phone] 07 May, 2017 [place] [address] [address] [facility] [id number] [address] [place] [phone] Apr, Threatened miscarriage O20.0 ; Normal , first Z34.00 and 8 weeks gestation of Z3A.08 [facility] [address] [place] [id number] [address] [place] [phone] Apr, [facility] [address] [facility] [id number] [address] [place] [phone] Apr, Encounter for test Z32.00 [place] [id number] [place] [phone] Dec, [place] [address] [address] [facility] [id number] [address] [place] [phone] Dec, [place] [address] [address] [facility] [id number] [address] [place] [phone] Sep, IMMUNIZATIONS No Known Immunizations SOCIAL HISTORY Never Assessed REASON FOR VISIT EMR-[facility] [place] PLAN OF CARE VITAL SIGNS MEDICATIONS Medication Instructions Dosage Frequency Start Date End Date Duration S tatus Bentyl 20 mg 1 tablet by Oral route every 6 hours PRN for pain Sep, Active Omeprazole 20 mg take 1 capsule (20 m g) by oral route once daily before a meal Sep, Active RESULTS No Results PROCEDURES No Known procedures INSTRUCTIONS MEDICATIONS ADMINISTERED No Known Medications MEDICAL (GENERAL) HISTORY Type Description Date Surgical History dental extractions
--- OUTSIDE RECORDS SUMMARY | 2020-01-03 07:17 | XMS REPORT ---
Author Author Amirah ELY Organization [facility] Address [address] [place] [address] Care Team Providers Care Winch Driver Name Role Phone JHOANADEVONTE DELGADILLOY Unavailable PROBLEMS Type Condition ICD9-CM Code [id number] Code Onset Dates Condition S tatus SNOMED Code Problem Need for rubella vaccination Z23 A ctive [id number] ALLERGIES No Known Allergies ENCOUNTERS Encounter Location Date Diagnosis [place] [id number] [address] [place] [phone] Feb, Evaluation regarding contrac eption options Z30.09 and examination following vaginal delivery Z39.2 [place] [id number] [address] [place] [phone] Dec, care in third trime ster Z34.93 and 38 weeks gestation of Z3A.38 [place] [id number] [address] [place] [phone] Nov, Third trimester Z3 4.93 and 37 weeks gestation of Z3A.37 [place] [id number] [address] [place] [phone] Nov, screening for stre ptococcus B Z36.85 ; care in third trimester Z34.93 and Antepartum tachycardia affecting care of mother O36.8390 [place] [address] [address] [place] [address] Nov, [place] [id number] [address] [place] [phone] Nov, care in third trime ster Z34.93 and 34 weeks gestation of Z3A.34 [place] [address] [address] [place] [id number] [address] [place] [phone] 23 Oct, 2017 care in third trime ster Z34.93 and 32 weeks gestation of Z3A.32 [place] [address] [address] [facility] [id number] [address] [place] [phone] 08 Oct, 2017 care in third trime ster Z34.93 ; Evaluate anatomy not seen on prior sonogram Z36.2 ; Breech presentation, single or unspecified fetus O32.1XX0 ; 30 weeks gestation of Z3A.30 and Encounter for immunization Z23 [place] [address] [address] [facility] [id number] [address] [place] [phone] Sep, Abnormal glucose tolerance i n O99.810 and Abnormal glucose tolerance test in O99.810 [place] [address] [address] [facility] [id number] [address] [place] [phone] 09 Sep, 2017 26 weeks gestation of pregna ncy Z3A.26 ; Diabetes mellitus screening Z13.1 ; Second trimester Z34.92 and Evaluate anatomy not seen on prior sonogram Z36.2 [place] [address] [address] [place] [id number] [address] [place] [phone] Aug, care, first pregnan cy in second trimester Z34.02 [place] [address] [address] [place] [id number] [address] [place] [phone] 07 Aug, 2017 21 weeks gestation of pregna ncy Z3A.21 and care, first in second trimester Z34.02 [place] [address] [address] [facility] [id number] [address] [place] [phone] Jun, care, first pregnan cy in second trimester Z34.02 and 15 weeks gestation of Z3A.15 [place] [address] [address] [facility] [id number] [address] [place] [phone] May, Threatened miscarriage O20.0 ; Urinary tract infection in mother during first trimester of O23.41 and 10 weeks gestation of Z3A.10 [place] [address] [address] [place] [id number] [address] [place] [phone] May, [facility] [address] [facility] [id number] [address] [place] [phone] Apr, Threatened miscarriage O20.0 ; Normal , first Z34.00 and 8 weeks gestation of Z3A.08 [facility] [address] [id number] [address] [place] [phone] Apr, [facility] [address] [facility] [id number] [address] [place] [phone] Apr, Encounter for test Z32.00 [facility] [address] [facility] [id number] [address] [place] [phone] Dec, [facility] [address] [facility] [id number] [address] [place] [phone] Dec, [facility] [address] [facility] [id number] [address] [place] [phone] Sep, IMMUNIZATIONS No Known Immunizations SOCIAL HISTORY Never Assessed REASON FOR VISIT OB 1wk [id number]/u--[id number] PLAN OF CARE Activity Details Follow Up 1 Week, 1 Week Reason: VITAL SIGNS Height 65.5 in 2017-12-24 Weight 232.3 lbs 2017-12-24 Temperature 97.6 degrees Fahrenheit 2017-12-24 Heart Rate 76 bpm 2017-12-24 Respiratory Rate 20 2017-12-24 BMI 38.069 kg/m2 2017-12-24 Blood pressure systolic 116 mmHg 2017-12-24 Blood pressure diastolic 74 mmHg 2017-12-24 MEDICATIONS Medication Instructions Dosage Frequency Start Date End Date Duration S tatus Vitamins - (Dis) Active RESULTS Name Result Date Reference Range UA OB DIP (IN HOUSE) 2017-12-24 Glucose negative Protein negative PROCEDURES Procedure Date Ordered Result Body Site URINE-NO MICRO December 24, 2017 INSTRUCTIONS MEDICATIONS ADMINISTERED No Known Medications MEDICAL (GENERAL) HISTORY Type Description Date Surgical History dental extractions
--- OUTSIDE RECORDS SUMMARY | 2020-01-03 07:17 | XMS REPORT ---
Author Author Amirah EYL Organization [facility] Address [address] [place] [address] Care Team Providers Care 3Rd Mate Name Role Phone JHOANADEVONTEY Unavailable PROBLEMS Type Condition ICD9-CM Code REZ05-UX Code Onset Dates Condition S tatus SNOMED Code Problem Need for rubella vaccination Z23 A ctive [id number] ALLERGIES No Known Allergies ENCOUNTERS Encounter Location Date Diagnosis [place] [id number] [address] [place] [phone] Feb, Evaluation regarding contrac eption options Z30.09 and examination following vaginal delivery Z39.2 [place] [id number] [address] [place] [phone] Dec, care in third trime ster Z34.93 and 38 weeks gestation of Z3A.38 [place] [id number] [address] [place] [phone] Nov, Third trimester Z3 4.93 and 37 weeks gestation of Z3A.37 [place] [id number] [address] [place] [phone] Nov, screening for stre ptococcus B Z36.85 ; care in third trimester Z34.93 and Antepartum tachycardia affecting care of mother O36.8390 [place] [address] [place] [address] Nov, [place] [id number] [address] [place] [address] Nov, care in third trime ster Z34.93 and 34 weeks gestation of Z3A.34 [place] [address] [address] [place] [id number] [address] [place] [phone] 23 Oct, 2017 care in third trime ster Z34.93 and 32 weeks gestation of Z3A.32 [place] [address] [address] [facility] [id number] [address] [place] [phone] 08 Oct, 2017 care in third trime ster Z34.93 ; Evaluate anatomy not seen on prior sonogram Z36.2 ; Breech presentation, single or unspecified fetus O32.1XX0 ; 30 weeks gestation of Z3A.30 and Encounter for immunization Z23 [place] [address] [address] [facility] [id number] [address] [place] [phone] Sep, Abnormal glucose tolerance i n O99.810 and Abnormal glucose tolerance test in O99.810 [place] [address] [address] [facility] [id number] [address] [place] [phone] 09 Sep, 2017 26 weeks gestation of pregna ncy Z3A.26 ; Diabetes mellitus screening Z13.1 ; Second trimester Z34.92 and Evaluate anatomy not seen on prior sonogram Z36.2 [place] [address] [address] [place] [id number] [address] [place] [phone] Aug, care, first pregnan cy in second trimester Z34.02 [place] [address] [address] [place] [id number] [address] [place] [phone] 07 Aug, 2017 21 weeks gestation of pregna ncy Z3A.21 and care, first in second trimester Z34.02 [place] [address] [address] [facility] [id number] [address] [place] [phone] Jun, care, first pregnan cy in second trimester Z34.02 and 15 weeks gestation of Z3A.15 [place] [address] [address] [facility] [id number] [address] [place] [phone] May, Threatened miscarriage O20.0 ; Urinary tract infection in mother during first trimester of O23.41 and 10 weeks gestation of Z3A.10 [place] [address] [address] [place] [id number] [address] [place] [address] May, [facility] [address] [facility] [id number] [address] [place] [phone] Apr, Threatened miscarriage O20.0 ; Normal , first Z34.00 and 8 weeks gestation of Z3A.08 [facility] [address] [id number] [address] [place] [phone] Apr, [facility] [address] [facility] [id number] [address] [place] [phone] Apr, Encounter for test Z32.00 [facility] [address] [id number] [address] [place] [phone] Dec, [facility] [address] [facility] [id number] [address] [place] [phone] Dec, [facility] [address] [facility] [id number] [address] [place] [phone] Sep, IMMUNIZATIONS No Known Immunizations SOCIAL HISTORY Never Assessed REASON FOR VISIT OB-. Pt requesting control, no preference[facility] OF CARE Activity Details Follow Up 1 Year Reason: VITAL SIGNS Height 65.5 in 2018-02-19 Weight 219.7 lbs 2018-02-19 Temperature 97.8 degrees Fahrenheit 2018-02-19 Heart Rate 88 bpm 2018-02-19 Respiratory Rate 18 2018-02-19 BMI 36.00 kg/m2 2018-02-19 Blood pressure systolic 118 mmHg 2018-02-19 Blood pressure diastolic 80 mmHg 2018-02-19 MEDICATIONS Medication Instructions Dosage Frequency Start Date End Date Duration S tatus Vitamins - (Dis) Not-Taking Ortho Micronor 0.35 MG Orally Once a day 1 tablet 24h Feb, 28 day(s) Active RESULTS Name Result Date Reference Range TEST, URINE (IN HOUSE) 2018-02-19 RESULTS negative Lot # [id number] Control + Exp date 09/20/2019 PROCEDURES Procedure Date Ordered Result Body Site URINE TEST February 19, 2018 INSTRUCTIONS MEDICATIONS ADMINISTERED No Known Medications MEDICAL (GENERAL) HISTORY Type Description Date Surgical History dental extractions
--- OUTSIDE RECORDS SUMMARY | 2020-01-03 07:17 | XMS REPORT ---
Author Author Amirah ELY Organization [facility] Address [address] [place] [address] Care Team Providers Care Life Skills Coach Name Role Phone JHOANADEVONTEY Unavailable PROBLEMS Type Condition ICD9-CM Code [id number] Code Onset Dates Condition S tatus SNOMED Code Problem Need for rubella vaccination Z23 A ctive [id number] ALLERGIES No Information ENCOUNTERS Encounter Location Date Diagnosis [place] [id number] [address] [place] [phone] Feb, Evaluation regarding contrac eption options Z30.09 and examination following vaginal delivery Z39.2 [place] [id number] [address] [place] [phone] Dec, care in third trime ster Z34.93 and 38 weeks gestation of Z3A.38 [place] [id number] [address] [place] [address] Nov, Third trimester Z3 4.93 and 37 weeks gestation of Z3A.37 [address] [place] [address] Nov, screening for stre ptococcus B Z36.85 ; care in third trimester Z34.93 and Antepartum tachycardia affecting care of mother O36.8390 [address] [place] [address] Nov, [place] [id number] [address] [place] [address] Nov, care in third trime ster Z34.93 and 34 weeks gestation of Z3A.34 [place] [address] [address] [place] [id number] [address] [place] [address] 23 Oct, 2017 care in third trime ster Z34.93 and 32 weeks gestation of Z3A.32 [place] [address] [address] [place] [id number] [address] [place] [phone] 08 Oct, 2017 care in third trime ster Z34.93 ; Evaluate anatomy not seen on prior sonogram Z36.2 ; Breech presentation, single or unspecified fetus O32.1XX0 ; 30 weeks gestation of Z3A.30 and Encounter for immunization Z23 [place] [address] [facility] [id number] [address] [place] [phone] Sep, Abnormal glucose tolerance i n O99.810 and Abnormal glucose tolerance test in O99.810 [place] [address] [address] [place] [id number] [address] [place] [phone] 09 Sep, 2017 26 weeks gestation of pregna ncy Z3A.26 ; Diabetes mellitus screening Z13.1 ; Second trimester Z34.92 and Evaluate anatomy not seen on prior sonogram Z36.2 [place] [id number] [place] [address] Aug, care, first pregnan cy in second trimester Z34.02 [place] [address] [place] [id number] [address] [place] [phone] 07 Aug, 2017 21 weeks gestation of pregna ncy Z3A.21 and care, first in second trimester Z34.02 [place] [address] [place] [id number] [address] [place] [phone] Jun, care, first pregnan cy in second trimester Z34.02 and 15 weeks gestation of Z3A.15 [place] [address] [address] [place] [id number] [address] [place] [phone] May, Threatened miscarriage O20.0 ; Urinary tract infection in mother during first trimester of O23.41 and 10 weeks gestation of Z3A.10 [place] [address] [address] [place] [id number] [address] [place] [phone] May, [facility] [address] [facility] [id number] [address] [place] [phone] Apr, Threatened miscarriage O20.0 ; Normal , first Z34.00 and 8 weeks gestation of Z3A.08 [facility] [address] [facility] [id number] [address] [place] [phone] Apr, [facility] [address] [facility] [id number] [address] [place] [phone] Apr, Encounter for test Z32.00 [facility] [address] [facility] [id number] [address] [place] [phone] Dec, [facility] [address] [facility] [id number] [address] [place] [phone] Dec, [facility] [address] [place] [id number] [address] [place] [phone] Sep, IMMUNIZATIONS No Known Immunizations SOCIAL HISTORY Never Assessed REASON FOR VISIT Patient Call PLAN OF CARE VITAL SIGNS MEDICATIONS Unknown Medications RESULTS No Results PROCEDURES No Known procedures INSTRUCTIONS MEDICATIONS ADMINISTERED No Known Medications MEDICAL (GENERAL) HISTORY Type Description Date Surgical History dental extractions
--- OUTSIDE RECORDS SUMMARY | 2020-01-03 07:17 | XMS REPORT ---
Author Author Amirah ELY Organization [facility] Address [address] [place] [address] Care Team Providers Care Water Filtration Technician Name Role Phone JHOANADEVONTEY Unavailable PROBLEMS Type Condition ICD9-CM Code RUG53-ML Code Onset Dates Condition S tatus SNOMED Code Problem Need for rubella vaccination Z23 A ctive [id number] ALLERGIES No Information ENCOUNTERS Encounter Location Date Diagnosis [place] [id number] [address] [place] [address] Feb, Evaluation regarding contrac eption options Z30.09 and examination following vaginal delivery Z39.2 [place] [id number] [address] [place] [address] Dec, care in third trime ster Z34.93 and 38 weeks gestation of Z3A.38 [place] [id number] [place] [address] Nov, Third trimester Z3 4.93 and 37 weeks gestation of Z3A.[address] [place] [address] Nov, screening for stre ptococcus B Z36.85 ; care in third trimester Z34.93 and Antepartum tachycardia affecting care of mother O36.8390 [address] [place] [address] Nov, [place] [id number] [address] [place] [address] Nov, care in third trime ster Z34.93 and 34 weeks gestation of Z3A.34 [place] [address] [address] [place] [id number] [address] [place] [address] 23 Oct, 2017 care in third trime ster Z34.93 and 32 weeks gestation of Z3A.32 [place] [address] [address] [place] [id number] [address] [place] [address] 08 Oct, 2017 care in third trime ster Z34.93 ; Evaluate anatomy not seen on prior sonogram Z36.2 ; Breech presentation, single or unspecified fetus O32.1XX0 ; 30 weeks gestation of Z3A.30 and Encounter for immunization Z23 [place] [address] [facility] [id number] [address] [place] [address] Sep, Abnormal glucose tolerance i n O99.810 and Abnormal glucose tolerance test in O99.810 [place] [address] [address] [place] [id number] [address] [place] [address] 09 Sep, 2017 26 weeks gestation of pregna ncy Z3A.26 ; Diabetes mellitus screening Z13.1 ; Second trimester Z34.92 and Evaluate anatomy not seen on prior sonogram Z36.2 [place] [address] [place] [address] Aug, care, first pregnan cy in second trimester Z34.02 [place] [address] [address] [place] [id number] [address] [place] [address] 07 Aug, 2017 21 weeks gestation of pregna ncy Z3A.21 and care, first in second trimester Z34.02 [place] [address] [address] [place] [id number] [address] [place] [address] Jun, care, first pregnan cy in second trimester Z34.02 and 15 weeks gestation of Z3A.15 [place] [address] [address] [place] [id number] [address] [place] [address] May, Threatened miscarriage O20.0 ; Urinary tract infection in mother during first trimester of O23.41 and 10 weeks gestation of Z3A.10 [place] [address] [address] [place] [id number] [address] [place] [address] May, [facility] [address] [facility] [id number] [address] [place] [address] Apr, Threatened miscarriage O20.0 ; Normal , first Z34.00 and 8 weeks gestation of Z3A.08 [facility] [address] [id number] [address] [place] [phone] Apr, [facility] [address] [facility] [id number] [address] [place] [address] Apr, Encounter for test Z32.00 [facility] [address] [id number] [address] [place] [address] Dec, [facility] [address] [facility] [id number] [address] [place] [address] Dec, [facility] [address] [facility] [id number] [address] [place] [phone] Sep, IMMUNIZATIONS No Known Immunizations SOCIAL HISTORY Never Assessed REASON FOR VISIT OB 1wk f/uJason Garcia PLAN OF CARE Activity Details Follow Up 1 Week Reason: VITAL SIGNS Height 65.5 in 2017-12-17 Weight 228 lbs 2017-12-17 Temperature 97.2 degrees Fahrenheit 2017-12-17 Heart Rate 90 bpm 2017-12-17 Respiratory Rate 18 2017-12-17 BMI 37.364 kg/m2 2017-12-17 Blood pressure systolic 110 mmHg 2017-12-17 Blood pressure diastolic 70 mmHg 2017-12-17 MEDICATIONS Medication Instructions Dosage Frequency Start Date End Date Duration S tatus Vitamins - (Dis) Active RESULTS Name Result Date Reference Range UA OB DIP (IN HOUSE) 2017-12-29 Glucose negative Protein negative PROCEDURES Procedure Date Ordered Result Body Site URINE-NO MICRO December 17, 2017 INSTRUCTIONS MEDICATIONS ADMINISTERED No Known Medications MEDICAL (GENERAL) HISTORY Type Description Date Surgical History dental extractions
--- OUTSIDE RECORDS SUMMARY | 2020-01-03 07:17 | XMS REPORT ---
Author Author Amirah Gaytan Doctor Organization [facility] Address Unknown Phone Unavailable Care Team Providers Care Wire Worker Name Role Phone Migration, Doctor Unavailable Unavailable PROBLEMS Type Condition ICD9-CM Code [id number] Code Onset Dates Condition S tatus SNOMED Code Problem Need for rubella vaccination Z23 A ctive [id number] ALLERGIES No Information ENCOUNTERS Encounter Location Date Diagnosis [place] [address] [address] [place] [id number] [address] [place] [address] Feb, Evaluation regarding contrac eption options Z30.09 and examination following vaginal delivery Z39.2 [place] [address] [address] [place] [id number] [address] [place] [address] Dec, care in third trime ster Z34.93 and 38 weeks gestation of Z3A.38 [place] [address] [address] [place] [id number] [address] [place] [address] Nov, Third trimester Z3 4.93 and 37 weeks gestation of Z3A.37 [place] [address] [address] [place] [id number] [address] [place] [address] Nov, screening for stre ptococcus B Z36.85 ; care in third trimester Z34.93 and Antepartum tachycardia affecting care of mother O36.8390 [place] [address] [address] [place] [id number] [address] [place] [address] Nov, [place] [address] [address] [place] [id number] [address] [place] [address] Nov, care in third trime ster Z34.93 and 34 weeks gestation of Z3A.34 [place] [address] [address] [place] [id number] [address] [place] [address] Oct, care in third trime ster Z34.93 and 32 weeks gestation of Z3A.32 [place] [address] [address] [facility] [id number] [address] [place] [address] 08 Oct, 2017 care in third trime ster Z34.93 ; Evaluate anatomy not seen on prior sonogram Z36.2 ; Breech presentation, single or unspecified fetus O32.1XX0 ; 30 weeks gestation of Z3A.30 and Encounter for immunization Z23 [place] [address] [address] [facility] [id number] [address] [place] [address] 15 Sep, 2017 Abnormal glucose tolerance i n O99.810 and Abnormal glucose tolerance test in O99.810 [place] [address] [address] [facility] [id number] [address] [place] [address] 09 Sep, 2017 26 weeks gestation of pregna ncy Z3A.26 ; Diabetes mellitus screening Z13.1 ; Second trimester Z34.92 and Evaluate anatomy not seen on prior sonogram Z36.2 [place] [address] [address] [facility] [id number] [address] [place] [address] Aug, care, first pregnan cy in second trimester Z34.02 [place] [address] [address] [facility] [id number] [address] [place] [address] 07 Aug, 2017 21 weeks gestation of pregna ncy Z3A.21 and care, first in second trimester Z34.02 [place] [address] [address] [facility] [id number] [address] [place] [address] Jun, care, first pregnan cy in second trimester Z34.02 and 15 weeks gestation of Z3A.15 [place] [address] [address] [facility] [id number] [address] [place] [address] May, Threatened miscarriage O20.0 ; Urinary tract infection in mother during first trimester of O23.41 and 10 weeks gestation of Z3A.10 [place] [address] [id number] [address] [place] [address] 07 May, 2017 [place] [address] [address] [facility] [id number] [address] [place] [address] Apr, Threatened miscarriage O20.0 ; Normal , first Z34.00 and 8 weeks gestation of Z3A.08 [facility] [address] [place] [address] Apr, [place] [address] [place] [address] Apr, Encounter for test Z32.00 [place] [address] [address] [place] [address] Dec, [facility] [address] [place] [address] Dec, [place] [address] [address] [place] [id number] [address] [place] [address] Sep, IMMUNIZATIONS No Known Immunizations SOCIAL HISTORY Never Assessed REASON FOR VISIT [place] [place] PLAN OF CARE VITAL SIGNS MEDICATIONS Unknown Medications RESULTS No Results PROCEDURES No Known procedures INSTRUCTIONS MEDICATIONS ADMINISTERED No Known Medications MEDICAL (GENERAL) HISTORY Type Description Date Surgical History dental extractions
--- OUTSIDE RECORDS SUMMARY | 2020-01-03 07:18 | XMS REPORT ---
Author Author Amirah ELY Organization [facility] Address [address] [place] [address] Care Team Providers Care Joy Loading Machine Operator Name Role Phone JHOANADEVONTEY Unavailable PROBLEMS Type Condition ICD9-CM Code [id number]-OX Code Onset Dates Condition S tatus SNOMED Code Problem Need for rubella vaccination Z23 A ctive [id number] ALLERGIES No Information ENCOUNTERS Encounter Location Date Diagnosis [place] [address] [place] [address] Feb, [place] [address] [address] [place] [id number] [address] [place] [address] Dec, care in third trime ster Z34.93 and 38 weeks gestation of Z3A.38 [place] [address] [address] [place] [id number] [address] [place] [address] Nov, Third trimester Z3 4.93 and 37 weeks gestation of Z3A.37 [place] [address] [address] [place] [id number] [address] [place] [address] Nov, screening for stre ptococcus B Z36.85 ; care in third trimester Z34.93 and Antepartum tachycardia affecting care of mother O36.8390 [place] [address] [address] [facility] [id number] [address] [place] [phone] Nov, [place] [address] [address] [place] [id number] [address] [place] [address] Nov, care in third trime ster Z34.93 and 34 weeks gestation of Z3A.34 [place] [address] [address] [place] [id number] [address] [place] [address] Oct, care in third trime ster Z34.93 and 32 weeks gestation of Z3A.32 [place] [address] [address] [facility] [id number] [address] [place] [address] 08 Oct, 2017 care in third trime ster Z34.93 ; Evaluate anatomy not seen on prior sonogram Z36.2 ; Breech presentation, single or unspecified fetus O32.1XX0 ; 30 weeks gestation of Z3A.30 and Encounter for immunization Z23 [place] [address] [address] [facility] [id number] [address] [place] [address] Sep, Abnormal glucose tolerance i n O99.810 and Abnormal glucose tolerance test in O99.810 [place] [address] [address] [facility] [id number] [address] [place] [address] 09 Sep, 2017 26 weeks gestation of pregna ncy Z3A.26 ; Diabetes mellitus screening Z13.1 ; Second trimester Z34.92 and Evaluate anatomy not seen on prior sonogram Z36.2 [place] [address] [address] [place] [id number] [address] [place] [phone] Aug, care, first pregnan cy in second trimester Z34.02 [place] [address] [address] [place] [id number] [address] [place] [phone] 07 Aug, 2017 21 weeks gestation of pregna ncy Z3A.21 and care, first in second trimester Z34.02 [place] [address] [address] [facility] [id number] [address] [place] [address] Jun, care, first pregnan cy in second trimester Z34.02 and 15 weeks gestation of Z3A.15 [place] [address] [address] [facility] [id number] [address] [place] [address] May, Threatened miscarriage O20.0 ; Urinary tract infection in mother during first trimester of O23.41 and 10 weeks gestation of Z3A.10 [place] [address] [address] [facility] [id number] [address] [place] [address] 07 May, 2017 [place] [address] [address] [place] [id number] [address] [place] [address] Apr, Threatened miscarriage O20.0 ; Normal , first Z34.00 and 8 weeks gestation of Z3A.08 [facility] [address] [place] [address] Apr, [place] [address] [place] [address] Apr, Encounter for test Z32.00 [place] [address] [place] [address] Dec, [place] [address] [place] [address] Dec, [place] [address] [address] [place] [id number] [address] [place] [address] Sep, IMMUNIZATIONS No Known Immunizations SOCIAL HISTORY Never Assessed REASON FOR VISIT med PLAN OF CARE VITAL SIGNS MEDICATIONS Medication Instructions Dosage Frequency Start Date End Date Duration S tatus Cephalexin 500 mg Orally every 12 hrs 1 capsule 12h May, May, 07 days Active RESULTS No Results PROCEDURES No Known procedures INSTRUCTIONS MEDICATIONS ADMINISTERED No Known Medications MEDICAL (GENERAL) HISTORY Type Description Date Surgical History dental extractions
--- OUTSIDE RECORDS SUMMARY | 2020-01-03 07:18 | XMS REPORT ---
Author Author Amirah ELY Organization [facility] Address [address] [place] [address] Care Team Providers Care Clinical Appeals Auditor Name Role Phone JHOANADEVONTEY Unavailable PROBLEMS Type Condition ICD9-CM Code VDX90-HX Code Onset Dates Condition S tatus SNOMED Code Problem Need for rubella vaccination Z23 A ctive [id number] ALLERGIES No Known Allergies ENCOUNTERS Encounter Location Date Diagnosis [place] [id number] [address] [place] [address] Feb, Evaluation regarding contrac eption options Z30.09 and examination following vaginal delivery Z39.2 [place] [id number] [address] [place] [address] Dec, care in third trime ster Z34.93 and 38 weeks gestation of Z3A.38 [place] [id number] [address] [place] [address] Nov, Third trimester Z3 4.93 and 37 weeks gestation of Z3A.37 [place] [id number] [address] [place] [address] Nov, screening for stre ptococcus B Z36.85 ; care in third trimester Z34.93 and Antepartum tachycardia affecting care of mother O36.8390 [place] [address] [place] [address] Nov, [place] [id number] [address] [place] [address] Nov, care in third trime ster Z34.93 and 34 weeks gestation of Z3A.34 [place] [address] [address] [place] [id number] [address] [place] [address] 23 Oct, 2017 care in third trime ster Z34.93 and 32 weeks gestation of Z3A.32 [place] [address] [facility] [id number] [address] [place] [address] 08 Oct, 2017 care in third trime ster Z34.93 ; Evaluate anatomy not seen on prior sonogram Z36.2 ; Breech presentation, single or unspecified fetus O32.1XX0 ; 30 weeks gestation of Z3A.30 and Encounter for immunization Z23 [place] [address] [address] [facility] [id number] [address] [place] [address] Sep, Abnormal glucose tolerance i n O99.810 and Abnormal glucose tolerance test in O99.810 [place] [address] [facility] [id number] [address] [place] [address] 09 Sep, 2017 26 weeks gestation of pregna ncy Z3A.26 ; Diabetes mellitus screening Z13.1 ; Second trimester Z34.92 and Evaluate anatomy not seen on prior sonogram Z36.2 [place] [address] [address] [place] [id number] [address] [place] [address] Aug, care, first pregnan cy in second trimester Z34.02 [place] [address] [place] [id number] [address] [place] [address] 07 Aug, 2017 21 weeks gestation of pregna ncy Z3A.21 and care, first in second trimester Z34.02 [place] [address] [facility] [id number] [address] [place] [address] Jun, care, first pregnan cy in second trimester Z34.02 and 15 weeks gestation of Z3A.15 [place] [address] [facility] [id number] [address] [place] [address] May, Threatened miscarriage O20.0 ; Urinary tract infection in mother during first trimester of O23.41 and 10 weeks gestation of Z3A.10 [place] [address] [address] [place] [id number] [address] [place] [address] May, [facility] [address] [id number] [address] [place] [address] Apr, Threatened miscarriage O20.0 ; Normal , first Z34.00 and 8 weeks gestation of Z3A.08 [facility] [address] [id number] [address] [place] [address] Apr, [facility] [address] [id number] [address] [place] [address] Apr, Encounter for test Z32.00 [facility] [address] [id number] [address] [place] [address] Dec, [facility] [address] [id number] [address] [place] [address] Dec, [facility] [address] [facility] [id number] [address] [place] [address] Sep, IMMUNIZATIONS No Known Immunizations SOCIAL HISTORY Never Assessed REASON FOR VISIT OB 1wk f/u--tcuppettRN PLAN OF CARE Activity Details Follow Up 1 Week, 1 Week Reason: VITAL SIGNS Height 65.5 in 2017-12-07 Weight 231.7 lbs 2017-12-07 Temperature 98.2 degrees Fahrenheit 2017-12-07 Heart Rate 88 bpm 2017-12-07 Respiratory Rate 20 2017-12-07 BMI 37.97 kg/m2 2017-12-07 Blood pressure systolic 110 mmHg 2017-12-07 Blood pressure diastolic 72 mmHg 2017-12-07 MEDICATIONS Medication Instructions Dosage Frequency Start Date End Date Duration S tatus Vitamins - (Dis) Active RESULTS No Results PROCEDURES Procedure Date Ordered Result Body Site NON-STRESS TEST 2017-12-07 N/A URINE-NO MICRO December 07, 2017 STREP CULTURE December 07, 2017 NON-STRESS TEST December 07, 2017 INSTRUCTIONS MEDICATIONS ADMINISTERED No Known Medications MEDICAL (GENERAL) HISTORY Type Description Date Surgical History dental extractions
--- OUTSIDE RECORDS SUMMARY | 2020-01-03 07:18 | XMS REPORT ---
Author Author Amirah MCCLAIN Organization [facility] Address [address] [place] [address] Care Team Providers Care Investigator Claims Name Role Phone GAUTAM MCCLAIN Unavailable PROBLEMS Type Condition ICD9-CM Code [id number] Code Onset Dates Condition S tatus SNOMED Code Problem Need for rubella vaccination Z23 A ctive [id number] ALLERGIES No Information ENCOUNTERS Encounter Location Date Diagnosis [place] [address] [place] [address] Feb, [place] [address] [address] [place] [id number] [address] [place] [address] Dec, care in third trime ster Z34.93 and 38 weeks gestation of Z3A.38 [place] [address] [address] [place] [id number] [address] [place] [address] Nov, Third trimester Z3 4.93 and 37 weeks gestation of Z3A.37 [place] [address] [address] [place] [id number] [address] [place] [address] Nov, screening for stre ptococcus B Z36.85 ; care in third trimester Z34.93 and Antepartum tachycardia affecting care of mother O36.8390 [place] [address] [address] [place] [id number] [address] [place] [address] Nov, [place] [address] [place] [id number] [address] [place] [address] Nov, care in third trime ster Z34.93 and 34 weeks gestation of Z3A.34 [place] [address] [address] [place] [id number] [address] [place] [address] Oct, care in third trime ster Z34.93 and 32 weeks gestation of Z3A.32 [place] [address] [address] [facility] [id number] [address] [place] [address] 08 Oct, 2017 care in third trime ster Z34.93 ; Evaluate anatomy not seen on prior sonogram Z36.2 ; Breech presentation, single or unspecified fetus O32.1XX0 ; 30 weeks gestation of Z3A.30 and Encounter for immunization Z23 [place] [address] [address] [facility] [id number] [address] [place] [address] Sep, Abnormal glucose tolerance i n O99.810 and Abnormal glucose tolerance test in O99.810 [place] [address] [address] [facility] [id number] [address] [place] [address] 09 Sep, 2017 26 weeks gestation of pregna ncy Z3A.26 ; Diabetes mellitus screening Z13.1 ; Second trimester Z34.92 and Evaluate anatomy not seen on prior sonogram Z36.2 [place] [address] [address] [facility] [place] [id number] [address] [place] [address] Aug, care, first pregnan cy in second trimester Z34.02 [place] [address] [address] [facility] [place] [id number] [address] [place] [address] Aug, 21 weeks gestation of pregna ncy Z3A.21 and care, first in second trimester Z34.02 [place] [address] [address] [facility] [place] [id number] [address] [place] [address] Jun, care, first pregnan cy in second trimester Z34.02 and 15 weeks gestation of Z3A.15 [place] [address] [address] [facility] [place] [id number] [address] [place] [address] May, Threatened miscarriage O20.0 ; Urinary tract infection in mother during first trimester of O23.41 and 10 weeks gestation of Z3A.10 [place] [address] [address] [facility] [place] [id number] [address] [place] [address] 07 May, 2017 [place] [address] [facility] [place] [id number] [address] [place] [address] Apr, Threatened miscarriage O20.0 ; Normal , first Z34.00 and 8 weeks gestation of Z3A.08 [facility] [address] [facility] [place] [id number] [address] [place] [address] Apr, [facility] [address] [facility] [place] [id number] [address] [place] [address] Apr, Encounter for test Z32.00 [facility] [address] [facility] [place] [id number] [address] [place] [address] Dec, [facility] [address] [facility] [place] [id number] [address] [place] [address] Dec, [facility] [address] [facility] [place] [id number] [address] [place] [id number] Sep, IMMUNIZATIONS No Known Immunizations SOCIAL HISTORY Never Assessed REASON FOR VISIT test (walk-in)/Urine--[facility] PLAN OF CARE VITAL SIGNS MEDICATIONS Unknown Medications RESULTS Name Result Date Reference Range TEST, URINE (IN HOUSE) 2017-05-04 RESULTS POSITIVE Lot # [id number] Control + Exp date 10/2018 PROCEDURES Procedure Date Ordered Result Body Site URINE TEST May 04, 2017 INSTRUCTIONS MEDICATIONS ADMINISTERED No Known Medications MEDICAL (GENERAL) HISTORY Type Description Date Surgical History dental extractions
--- OUTSIDE RECORDS SUMMARY | 2020-01-03 07:18 | XMS REPORT ---
Author Author Amirah ELY Organization [facility] Address [address] [place] [address] Care Team Providers Care Household Chores Name Role Phone JHOANADEVONTEY Unavailable PROBLEMS Type Condition ICD9-CM Code [id number] Code Onset Dates Condition S tatus SNOMED Code Problem Need for rubella vaccination Z23 A ctive [id number] ALLERGIES No Information ENCOUNTERS Encounter Location Date Diagnosis [place] [id number] [address] [place] [phone] Feb, Evaluation regarding contrac eption options Z30.09 and examination following vaginal delivery Z39.2 [place] [id number] [address] [place] [address] Dec, care in third trime ster Z34.93 and 38 weeks gestation of Z3A.38 [place] [id number] [address] [place] [address] Nov, Third trimester Z3 4.93 and 37 weeks gestation of Z3A.[address] [place] [address] Nov, screening for stre ptococcus B Z36.85 ; care in third trimester Z34.93 and Antepartum tachycardia affecting care of mother O36.8390 [place] [address] [place] [address] Nov, [place] [id number] [address] [place] [address] Nov, care in third trime ster Z34.93 and 34 weeks gestation of Z3A.34 [place] [address] [address] [place] [id number] [address] [place] [id number] 23 Oct, 2017 care in third trime ster Z34.93 and 32 weeks gestation of Z3A.32 [place] [address] [address] [place] [id number] [address] [place] [phone] 08 Oct, 2017 care in third trime ster Z34.93 ; Evaluate anatomy not seen on prior sonogram Z36.2 ; Breech presentation, single or unspecified fetus O32.1XX0 ; 30 weeks gestation of Z3A.30 and Encounter for immunization Z23 [place] [address] [facility] [id number] [address] [place] [address] Sep, Abnormal glucose tolerance i n O99.810 and Abnormal glucose tolerance test in O99.810 [place] [address] [address] [place] [id number] [address] [place] [phone] 09 Sep, 2017 26 weeks gestation of pregna ncy Z3A.26 ; Diabetes mellitus screening Z13.1 ; Second trimester Z34.92 and Evaluate anatomy not seen on prior sonogram Z36.2 [place] [address] [place] [address] Aug, care, first pregnan cy in second trimester Z34.02 [place] [address] [address] [place] [id number] [address] [place] [phone] 07 Aug, 2017 21 weeks gestation of pregna ncy Z3A.21 and care, first in second trimester Z34.02 [place] [address] [address] [place] [id number] [address] [place] [phone] Jun, care, first pregnan cy in second trimester Z34.02 and 15 weeks gestation of Z3A.15 [place] [address] [address] [place] [id number] [address] [place] [address] May, Threatened miscarriage O20.0 ; Urinary tract infection in mother during first trimester of O23.41 and 10 weeks gestation of Z3A.10 [place] [address] [address] [place] [id number] [address] [place] [phone] May, [facility] [address] [facility] [id number] [address] [place] [phone] Apr, Threatened miscarriage O20.0 ; Normal , first Z34.00 and 8 weeks gestation of Z3A.08 [facility] [address] [id number] [address] [place] [phone] Apr, [facility] [address] [facility] [id number] [address] [place] [address] Apr, Encounter for test Z32.00 [facility] [address] [id number] [address] [place] [phone] Dec, [facility] [address] [facility] [id number] [address] [place] [phone] Dec, [facility] [address] [facility] [id number] [address] [place] [phone] Sep, IMMUNIZATIONS No Known Immunizations SOCIAL HISTORY Never Assessed REASON FOR VISIT ob 2wk f/u -- nitin her PLAN OF CARE Activity Details Follow Up 2 Weeks Reason: VITAL SIGNS Height 65.5 in 2017-11-13 Weight 224.6 lbs 2017-11-13 Temperature 97.0 degrees Fahrenheit 2017-11-13 Heart Rate 70 bpm 2017-11-13 Respiratory Rate 18 2017-11-13 BMI 36.807 kg/m2 2017-11-13 Blood pressure systolic 128 mmHg 2017-11-13 Blood pressure diastolic 80 mmHg 2017-11-13 MEDICATIONS Medication Instructions Dosage Frequency Start Date End Date Duration S tatus Vitamins - (Dis) Active RESULTS Name Result Date Reference Range UA OB DIP (IN HOUSE) 2017-11-13 Glucose neg Protein trace PROCEDURES Procedure Date Ordered Result Body Site URINE-NO MICRO Nov 13, 2017 INSTRUCTIONS MEDICATIONS ADMINISTERED No Known Medications MEDICAL (GENERAL) HISTORY Type Description Date Surgical History dental extractions
--- OUTSIDE RECORDS SUMMARY | 2020-01-03 07:18 | XMS REPORT ---
Author Author Amirah ELY Organization [facility] Address [address] [place] [address] Care Team Providers Care Electronic Semiconductor Processor Name Role Phone JHOANAMARYA DELGADILLO Unavailable PROBLEMS Type Condition ICD9-CM Code [id number] Code Onset Dates Condition S tatus SNOMED Code Problem Need for rubella vaccination Z23 A ctive [id number] ALLERGIES No Known Allergies ENCOUNTERS Encounter Location Date Diagnosis [place] [address] [address] [place] [id number] [address] [place] [phone] Feb, [place] [address] [address] [place] [id number] [address] [place] [address] Dec, care in third trime ster Z34.93 and 38 weeks gestation of Z3A.38 [place] [address] [address] [facility] [id number] [address] [place] [phone] Nov, Third trimester Z3 4.93 and 37 weeks gestation of Z3A.37 [place] [address] [address] [facility] [id number] [address] [place] [address] Nov, screening for stre ptococcus B Z36.85 ; care in third trimester Z34.93 and Antepartum tachycardia affecting care of mother O36.8390 [place] [address] [address] [facility] [id number] [address] [place] [phone] Nov, [place] [address] [address] [place] [id number] [address] [place] [address] Nov, care in third trime ster Z34.93 and 34 weeks gestation of Z3A.34 [place] [address] [address] [facility] [id number] [address] [place] [address] Oct, care in third trime ster Z34.93 and 32 weeks gestation of Z3A.32 [place] [address] [address] [facility] [id number] [address] [place] [phone] 08 Oct, 2017 care in third trime ster Z34.93 ; Evaluate anatomy not seen on prior sonogram Z36.2 ; Breech presentation, single or unspecified fetus O32.1XX0 ; 30 weeks gestation of Z3A.30 and Encounter for immunization Z23 [place] [address] [address] [facility] [id number] [address] [place] [phone] 15 Sep, 2017 Abnormal glucose tolerance i n O99.810 and Abnormal glucose tolerance test in O99.810 [place] [address] [address] [place] [id number] [address] [place] [address] 09 Sep, 2017 26 weeks gestation of pregna ncy Z3A.26 ; Diabetes mellitus screening Z13.1 ; Second trimester Z34.92 and Evaluate anatomy not seen on prior sonogram Z36.2 [place] [address] [address] [facility] [id number] [address] [place] [phone] Aug, care, first pregnan cy in second trimester Z34.02 [place] [address] [address] [facility] [id number] [address] [place] [phone] 07 Aug, 2017 21 weeks gestation of pregna ncy Z3A.21 and care, first in second trimester Z34.02 [place] [address] [address] [facility] [id number] [address] [place] [phone] Jun, care, first pregnan cy in second trimester Z34.02 and 15 weeks gestation of Z3A.15 [place] [address] [address] [facility] [id number] [address] [place] [phone] May, Threatened miscarriage O20.0 ; Urinary tract infection in mother during first trimester of O23.41 and 10 weeks gestation of Z3A.10 [place] [address] [address] [facility] [id number] [address] [place] [phone] May, [place] [address] [address] [place] [id number] [address] [place] [phone] Apr, Threatened miscarriage O20.0 ; Normal , first Z34.00 and 8 weeks gestation of Z3A.08 [facility] [address] [facility] [id number] [address] [place] [phone] 14 Apr, 2017 [facility] [address] [facility] [id number] [address] [place] [phone] Apr, Encounter for test Z32.00 [facility] [address] [facility] [id number] [address] [place] [phone] Dec, [facility] [address] [facility] [id number] [address] [place] [phone] Dec, [facility] [address] [facility] [id number] [address] [place] [phone] Sep, IMMUNIZATIONS No Known Immunizations SOCIAL HISTORY Never Assessed REASON FOR VISIT OB-intake---WARD Beck, pt. states started having some spotting last night and this morning PLAN OF CARE Activity Details Follow Up 4 Weeks Reason: VITAL SIGNS Height 65.5 in 2017-05-14 Weight 208.3 lbs 2017-05-14 Temperature 97.8 degrees Fahrenheit 2017-05-14 Heart Rate 66 bpm 2017-05-14 Respiratory Rate 18 2017-05-14 BMI 34.136 kg/m2 2017-05-14 Blood pressure systolic 122 mmHg 2017-05-14 Blood pressure diastolic 81 mmHg 2017-05-14 MEDICATIONS Unknown Medications RESULTS Name Result Date Reference Range PAP TEST, HPV IF ASCUS 2017-05-14 DIAGNOSIS: Specimen adequacy: Clinician provided ICD10: Performed by: . . Note: . CULTURE, GENITAL 2017-05-14 Genital Culture, Routine Final report Result 1 CULTURE, URINE 2017-05-14 Urine Culture, Routine Final report Result 1 Klebsiella pneumoniae Antimicrobial Susceptibility TRICHOMONAS (IN HOUSE) 2017-05-14 TRICHOMONAS Negative Control + Lot # [id number] Exp date 08/06/30 URINE DRUG SCREEN (IN HOUSE) 2017-05-14 Lot # [id number] Exp date Control + COCAINE Negative AMPH Negative MTD Negative THC Negative OPIATE Negative BENZO Negative PCP Negative BAR Negative OXY Negative MAMP Negative TCA Negative BUP Negative MDMA Negative UA LONG DIP (IN HOUSE) 2017-05-14 Lot # [id number] Exp date 06/12/30 Clarity Clear Color Yellow Odor None GLU Negative DELLA Negative KET Negative SG 1.020 BLO 1+ pH 6.0 Protein Negative URO 0.2 NIT Negative DION Trace Lot # Exp date PDF Report 2017-05-14 PDF Report1 LCLS BACTERIAL VAGINOSIS (IN HOUSE) 2017-05-14 RESULTS Negative Control + Lot # [id number] Exp date PAP TEST, HPV IF ASCUS 2017-05-14 DIAGNOSIS: Specimen adequacy: Clinician provided ICD10: Performed by: . . Note: . CULTURE, GENITAL 2017-05-14 Genital Culture, Routine Final report Result 1 CULTURE, URINE 2017-05-14 Urine Culture, Routine Final report Result 1 Klebsiella pneumoniae Antimicrobial Susceptibility GC/CHLAM PROBE ([facility]) 2017-05-14 CHLAMYDIA negative GC negative TRICHOMONAS (IN HOUSE) 2017-05-14 TRICHOMONAS Negative Control + Lot # [id number] Exp date 08/06/30 URINE DRUG SCREEN (IN HOUSE) 2017-05-14 Lot # [id number] Exp date Control + COCAINE Negative AMPH Negative MTD Negative THC Negative OPIATE Negative BENZO Negative PCP Negative BAR Negative OXY Negative MAMP Negative TCA Negative BUP Negative MDMA Negative UA LONG DIP (IN HOUSE) 2017-05-14 Lot # [id number] Exp date 06/12/30 Clarity Clear Color Yellow Odor None GLU Negative DELLA Negative KET Negative SG 1.020 BLO 1+ pH 6.0 Protein Negative URO 0.2 NIT Negative DION Trace Lot # Exp PDF Report 2017-05-14 PDF Report1 LCLS BACTERIAL VAGINOSIS (IN HOUSE) 2017-05-14 RESULTS Negative Control + Lot # [id number] Exp date PAP TEST, HPV IF ASCUS 2017-05-14 DIAGNOSIS: Specimen adequacy: Clinician provided ICD10: Performed by: . . Note: . CULTURE, GENITAL 2017-05-14 Genital Culture, Routine Final report Result 1 CULTURE, URINE 2017-05-14 Urine Culture, Routine Final report Result 1 Klebsiella pneumoniae Antimicrobial Susceptibility GC/CHLAM PROBE ([facility]) 2017-05-14 CHLAMYDIA negative GC negative TRICHOMONAS (IN HOUSE) 2017-05-14 TRICHOMONAS Negative Control + Lot # [id number] Exp date 08/06/30 URINE DRUG SCREEN (IN HOUSE) 2017-05-14 Lot # [id number] Exp date Control + COCAINE Negative AMPH Negative MTD Negative THC Negative OPIATE Negative BENZO Negative PCP Negative BAR Negative OXY Negative MAMP Negative TCA Negative BUP Negative MDMA Negative UA LONG DIP (IN HOUSE) 2017-05-14 Lot # [id number] Exp date 06/12/30 Clarity Clear Color Yellow Odor None GLU Negative DELLA Negative KET Negative SG 1.020 BLO 1+ pH 6.0 Protein Negative URO 0.2 NIT Negative DION Trace Lot # Exp date PDF Report 2017-05-14 PDF Report1 LCLS BACTERIAL VAGINOSIS (IN HOUSE) 2017-05-14 RESULTS Negative Control + Lot # [id number] Exp date Ultrasound : OB, Early <14 WEEKS 2017-05-14 PROCEDURES Procedure Date Ordered Result Body Site URINE CULTURE/COLONY COUNT May 14, 2017 CULTURE, BACTERIA, OTHER May 14, 2017 SPECIMEN HANDLING May 14, 2017 TRICHOMONAS ASSAY W/OPTIC May 14, 2017 URINALYSIS, AUTO, W/O SCOPE May 14, 2017 INSTRUCTIONS MEDICATIONS ADMINISTERED No Known Medications MEDICAL (GENERAL) HISTORY Type Description Date Surgical History dental extractions
--- OUTSIDE RECORDS SUMMARY | 2020-01-03 07:18 | XMS REPORT ---
Author Author Amirah TORRES Organization [facility] Address [address] [place] [address] Care Team Providers Care Hair Designer Name Role Phone HARINDER TORRES Unavailable PROBLEMS Type Condition ICD9-CM Code [id number] Code Onset Dates Condition S tatus SNOMED Code Problem Need for rubella vaccination Z23 A ctive [id number] ALLERGIES No Known Allergies ENCOUNTERS Encounter Location Date Diagnosis [place] [id number] [facility] [id number] [address] [place] [phone] Feb, [place] [address] N [place] [id number] [address] [place] [phone] Dec, care in third trime ster Z34.93 and 38 weeks gestation of Z3A.38 [place] [address] N [place] [id number] [address] [place] [address] Nov, Third trimester Z3 4.93 and 37 weeks gestation of Z3A.37 [place] [address] N [place] [id number] [address] [place] [address] Nov, screening for stre ptococcus B Z36.85 ; care in third trimester Z34.93 and Antepartum tachycardia affecting care of mother O36.8390 [facility] [address] [facility] [id number] [address] [place] [phone] Nov, [place] [address] [place] [id number] [address] [place] [phone] Nov, care in third trime ster Z34.93 and 34 weeks gestation of Z3A.34 [place] [address] [facility] [id number] [address] [place] [phone] Oct, care in third trime ster Z34.93 and 32 weeks gestation of Z3A.32 [place] [address] [facility] [id number] [address] [place] [phone] 08 Oct, 2017 care in third trime ster Z34.93 ; Evaluate anatomy not seen on prior sonogram Z36.2 ; Breech presentation, single or unspecified fetus O32.1XX0 ; 30 weeks gestation of Z3A.30 and Encounter for immunization Z23 [place] [address] [facility] [id number] [address] [place] [address] Sep, Abnormal glucose tolerance i n O99.810 and Abnormal glucose tolerance test in O99.810 [place] [address] [facility] [id number] [address] [place] [phone] 09 Sep, 2017 26 weeks gestation of pregna ncy Z3A.26 ; Diabetes mellitus screening Z13.1 ; Second trimester Z34.92 and Evaluate anatomy not seen on prior sonogram Z36.2 [place] [address] [address] [place] [id number] [address] [place] [phone] Aug, care, first pregnan cy in second trimester Z34.02 [place] [address] [facility] [id number] [address] [place] [phone] 07 Aug, 2017 21 weeks gestation of pregna ncy Z3A.21 and care, first in second trimester Z34.02 [place] [address] [facility] [id number] [address] [place] [phone] Jun, care, first pregnan cy in second trimester Z34.02 and 15 weeks gestation of Z3A.15 [place] [address] [facility] [id number] [address] [place] [phone] May, Threatened miscarriage O20.0 ; Urinary tract infection in mother during first trimester of O23.41 and 10 weeks gestation of Z3A.10 [place] [address] [facility] [id number] [address] [place] [phone] 07 May, 2017 [place] [address] [facility] [id number] [address] [place] [phone] Apr, Threatened miscarriage O20.0 ; Normal , first Z34.00 and 8 weeks gestation of Z3A.08 [facility] [address] [facility] [id number] [address] [place] [phone] Apr, [facility] [address] [facility] [id number] [address] [place] [phone] Apr, Encounter for test Z32.00 [place] [address] [facility] [id number] [address] [place] [phone] Dec, [facility] [address] [facility] [id number] [address] [place] [phone] Dec, [facility] [address] [facility] [id number] [address] [place] [phone] Sep, IMMUNIZATIONS No Known Immunizations SOCIAL HISTORY Never Assessed REASON FOR VISIT OB Flowsheet History--tcuppettRN PLAN OF CARE VITAL SIGNS MEDICATIONS Unknown Medications RESULTS No Results PROCEDURES No Known procedures INSTRUCTIONS MEDICATIONS ADMINISTERED No Known Medications MEDICAL (GENERAL) HISTORY Type Description Date Surgical History dental extractions
--- OUTSIDE RECORDS SUMMARY | 2020-01-03 07:18 | XMS REPORT ---
Author Author Amirah ELY Organization [facility] Address [address] [place] [address] Care Team Providers Care Departmental Shipping Clerk Name Role Phone JHOANADEVONTEY Unavailable PROBLEMS Type Condition ICD9-CM Code [id number] Code Onset Dates Condition S tatus SNOMED Code Problem Need for rubella vaccination Z23 A ctive [id number] ALLERGIES No Information ENCOUNTERS Encounter Location Date Diagnosis [place] [id number] [address] [place] [phone] Feb, Evaluation regarding contrac eption options Z30.09 and examination following vaginal delivery Z39.2 [place] [id number] [address] [place] [address] Dec, care in third trime ster Z34.93 and 38 weeks gestation of Z3A.38 [place] [id number] [address] [place] [phone] Nov, Third trimester Z3 4.93 and 37 weeks gestation of Z3A.[address] [place] [address] Nov, screening for stre ptococcus B Z36.85 ; care in third trimester Z34.93 and Antepartum tachycardia affecting care of mother O36.8390 [place] [address] [place] [address] Nov, [place] [id number] [address] [place] [address] Nov, care in third trime ster Z34.93 and 34 weeks gestation of Z3A.34 [place] [address] [address] [place] [id number] [address] [place] [address] 23 Oct, 2017 care in third trime ster Z34.93 and 32 weeks gestation of Z3A.32 [place] [address] [address] [place] [id number] [address] [place] [address] 08 Oct, 2017 care in third trime ster Z34.93 ; Evaluate anatomy not seen on prior sonogram Z36.2 ; Breech presentation, single or unspecified fetus O32.1XX0 ; 30 weeks gestation of Z3A.30 and Encounter for immunization Z23 [place] [address] [facility] [id number] [address] [place] [address] Sep, Abnormal glucose tolerance i n O99.810 and Abnormal glucose tolerance test in O99.810 [place] [address] [address] [place] [id number] [address] [place] [phone] 09 Sep, 2017 26 weeks gestation of pregna ncy Z3A.26 ; Diabetes mellitus screening Z13.1 ; Second trimester Z34.92 and Evaluate anatomy not seen on prior sonogram Z36.2 [place] [address] [place] [address] Aug, care, first pregnan cy in second trimester Z34.02 [place] [address] [address] [place] [id number] [address] [place] [phone] 07 Aug, 2017 21 weeks gestation of pregna ncy Z3A.21 and care, first in second trimester Z34.02 [place] [address] [address] [place] [id number] [address] [place] [address] Jun, care, first pregnan cy in second trimester Z34.02 and 15 weeks gestation of Z3A.15 [place] [address] [address] [place] [id number] [address] [place] [phone] May, Threatened miscarriage O20.0 ; Urinary tract infection in mother during first trimester of O23.41 and 10 weeks gestation of Z3A.10 [place] [address] [address] [place] [id number] [address] [place] [phone] May, [facility] [address] [facility] [id number] [address] [place] [phone] Apr, Threatened miscarriage O20.0 ; Normal , first Z34.00 and 8 weeks gestation of Z3A.08 [facility] [address] [facility] [id number] [address] [place] [phone] Apr, [facility] [address] [facility] [id number] [address] [place] [phone] Apr, Encounter for test Z32.00 [facility] [address] [facility] [id number] [address] [place] [phone] Dec, [facility] [address] [facility] [id number] [address] [place] [phone] Dec, [facility] [address] [place] [id number] [address] [place] [phone] Sep, IMMUNIZATIONS No Known Immunizations SOCIAL HISTORY Never Assessed REASON FOR VISIT Follow up Ultrasound order PLAN OF CARE VITAL SIGNS MEDICATIONS Unknown Medications RESULTS Name Result Date Reference Range Ultrasound : OB, Follow-up 2017-10-06 PROCEDURES No Known procedures INSTRUCTIONS MEDICATIONS ADMINISTERED No Known Medications MEDICAL (GENERAL) HISTORY Type Description Date Surgical History dental extractions
--- OUTSIDE RECORDS SUMMARY | 2020-01-03 07:18 | XMS REPORT ---
Author Author Amirah ELY Organization [facility] Address [address] [place] [address] Care Team Providers Care Data Analytics Analyst Name Role Phone JHOANADEVONTEY Unavailable PROBLEMS Type Condition ICD9-CM Code HFT92-CQ Code Onset Dates Condition S tatus SNOMED Code Problem Need for rubella vaccination Z23 A ctive [id number] ALLERGIES No Information ENCOUNTERS Encounter Location Date Diagnosis [place] [id number] [address] [place] [phone] Feb, Evaluation regarding contrac eption options Z30.09 and examination following vaginal delivery Z39.2 [place] [id number] [place] [phone] Dec, care in third trime ster Z34.93 and 38 weeks gestation of Z3A.38 [place] [id number] [place] [phone] Nov, Third trimester Z3 4.93 and 37 weeks gestation of Z3A.[address] [place] [address] Nov, screening for stre ptococcus B Z36.85 ; care in third trimester Z34.93 and Antepartum tachycardia affecting care of mother O36.8390 [place] [address] [place] [address] Nov, [place] [id number] [place] [phone] Nov, care in third trime ster Z34.93 and 34 weeks gestation of Z3A.34 [place] [address] [address] [place] [id number] [address] [place] [phone] 23 Oct, 2017 care in third trime ster Z34.93 and 32 weeks gestation of Z3A.32 [place] [address] [address] [place] [id number] [address] [place] [phone] 08 Oct, 2017 care in third trime ster Z34.93 ; Evaluate anatomy not seen on prior sonogram Z36.2 ; Breech presentation, single or unspecified fetus O32.1XX0 ; 30 weeks gestation of Z3A.30 and Encounter for immunization Z23 [place] [address] [address] [facility] [id number] [address] [place] [phone] Sep, Abnormal glucose tolerance i n O99.810 and Abnormal glucose tolerance test in O99.810 [place] [address] [address] [place] [id number] [address] [place] [phone] 09 Sep, 2017 26 weeks gestation of pregna ncy Z3A.26 ; Diabetes mellitus screening Z13.1 ; Second trimester Z34.92 and Evaluate anatomy not seen on prior sonogram Z36.2 [place] [address] [place] [phone] Aug, care, first pregnan cy in second trimester Z34.02 [place] [address] [address] [place] [id number] [address] [place] [phone] 07 Aug, 2017 21 weeks gestation of pregna ncy Z3A.21 and care, first in second trimester Z34.02 [place] [address] [address] [place] [id number] [address] [place] [phone] Jun, care, first pregnan cy in second trimester Z34.02 and 15 weeks gestation of Z3A.15 [place] [address] [address] [place] [id number] [address] [place] [phone] May, Threatened miscarriage O20.0 ; Urinary tract infection in mother during first trimester of O23.41 and 10 weeks gestation of Z3A.10 [place] [address] [address] [place] [id number] [address] [place] [phone] May, [facility] [address] [facility] [id number] [address] [place] [phone] Apr, Threatened miscarriage O20.0 ; Normal , first Z34.00 and 8 weeks gestation of Z3A.08 [facility] [address] [facility] [id number] [address] [place] [phone] Apr, [facility] [address] [facility] [id number] [address] [place] [phone] Apr, Encounter for test Z32.00 [facility] [address] [facility] [id number] [address] [place] [phone] Dec, [facility] [address] [facility] [id number] [address] [place] [phone] Dec, [facility] [address] [facility] [id number] [address] [place] [phone] Sep, IMMUNIZATIONS No Known Immunizations SOCIAL HISTORY Never Assessed REASON FOR VISIT 3 hr GTT order PLAN OF CARE VITAL SIGNS MEDICATIONS Unknown Medications RESULTS Name Result Date Reference Range GLUCOSE JAMES 3 HOUR 2017-10-08 COMMENT TIME 1 SPECIMEN 1 TIME 2 SPECIMEN 2 TIME 3 SPECIMEN 3 TIME 4 SPECIMEN 4 Glucose - Fasting 90 Glucose - 1 hour 142 Glucose - 2 hour 103 Glucose - 3 hour 92 Note: Gest Glucose Tolerance (4) PROCEDURES Procedure Date Ordered Result Body Site GTT-ADDED SAMPLES Oct 05, 2017 GLUCOSE TOLERANCE TEST (GTT) Oct 05, 2017 INSTRUCTIONS MEDICATIONS ADMINISTERED No Known Medications MEDICAL (GENERAL) HISTORY Type Description Date Surgical History dental extractions
--- OUTSIDE RECORDS SUMMARY | 2020-01-03 07:18 | XMS REPORT ---
Author Author Amirah ELY Organization [facility] Address [address] [place] [address] Care Team Providers Care Center Receptionist Name Role Phone JHOANADEVONTEY Unavailable PROBLEMS Type Condition ICD9-CM Code TTZ78-GQ Code Onset Dates Condition S tatus SNOMED Code Problem Need for rubella vaccination Z23 A ctive [id number] ALLERGIES No Information ENCOUNTERS Encounter Location Date Diagnosis [place] [id number] [address] [place] [phone] Feb, Evaluation regarding contrac eption options Z30.09 and examination following vaginal delivery Z39.2 [place] [id number] [place] [address] Dec, care in third trime ster Z34.93 and 38 weeks gestation of Z3A.38 [place] [id number] [place] [address] Nov, Third trimester Z3 4.93 and 37 weeks gestation of Z3A.37 [address] [place] [address] Nov, screening for stre ptococcus B Z36.85 ; care in third trimester Z34.93 and Antepartum tachycardia affecting care of mother O36.8390 [place] [address] [place] [address] Nov, [place] [id number] [place] [address] Nov, care in third trime ster Z34.93 and 34 weeks gestation of Z3A.34 [place] [address] [place] [id number] [address] [place] [address] 23 Oct, 2017 care in third trime ster Z34.93 and 32 weeks gestation of Z3A.32 [place] [address] [address] [place] [id number] [address] [place] [phone] 08 Oct, 2017 care in third trime ster Z34.93 ; Evaluate anatomy not seen on prior sonogram Z36.2 ; Breech presentation, single or unspecified fetus O32.1XX0 ; 30 weeks gestation of Z3A.30 and Encounter for immunization Z23 [place] [address] [facility] [id number] [address] [place] [phone] Sep, Abnormal glucose tolerance i n O99.810 and Abnormal glucose tolerance test in O99.810 [place] [address] [address] [place] [id number] [address] [place] [phone] 09 Sep, 2017 26 weeks gestation of pregna ncy Z3A.26 ; Diabetes mellitus screening Z13.1 ; Second trimester Z34.92 and Evaluate anatomy not seen on prior sonogram Z36.2 [place] [address] [place] [address] Aug, care, first pregnan cy in second trimester Z34.02 [place] [address] [address] [place] [id number] [address] [place] [phone] 07 Aug, 2017 21 weeks gestation of pregna ncy Z3A.21 and care, first in second trimester Z34.02 [place] [address] [address] [place] [id number] [address] [place] [address] Jun, care, first pregnan cy in second trimester Z34.02 and 15 weeks gestation of Z3A.15 [place] [address] [address] [place] [id number] [address] [place] [address] May, Threatened miscarriage O20.0 ; Urinary tract infection in mother during first trimester of O23.41 and 10 weeks gestation of Z3A.10 [place] [address] [address] [place] [id number] [address] [place] [phone] May, [facility] [address] [facility] [id number] [address] [place] [phone] Apr, Threatened miscarriage O20.0 ; Normal , first Z34.00 and 8 weeks gestation of Z3A.08 [facility] [address] [facility] [id number] [address] [place] [phone] Apr, [facility] [address] [facility] [id number] [address] [place] [phone] Apr, Encounter for test Z32.00 [facility] [address] [facility] [id number] [address] [place] [phone] Dec, [facility] [address] [facility] [id number] [address] [place] [phone] Dec, [facility] [address] [facility] [id number] [address] [place] [phone] Sep, IMMUNIZATIONS Vaccine Route Administration Date Status TDAP (BOOSTRIX) IM Intramuscular Oct 29, 2017 Administered SOCIAL HISTORY Never Assessed REASON FOR VISIT 4 WK OB fu --nitin her PLAN OF CARE Activity Details Follow Up 2 Weeks, 2 Weeks, 3 Weeks Re ason: VITAL SIGNS Height 65.5 in 2017-10-29 Weight 224.0 lbs 2017-10-29 Temperature 98.0 degrees Fahrenheit 2017-10-29 Heart Rate 78 bpm 2017-10-29 Respiratory Rate 20 2017-10-29 BMI 36.709 kg/m2 2017-10-29 Blood pressure systolic 126 mmHg 2017-10-29 Blood pressure diastolic 70 mmHg 2017-10-29 MEDICATIONS Medication Instructions Dosage Frequency Start Date End Date Duration S tatus Vitamins - (Dis) Active RESULTS Name Result Date Reference Range UA OB DIP (IN HOUSE) 2017-10-29 Glucose neg Protein neg Ultrasound : OB, Follow-up 2017-11-03 PROCEDURES Procedure Date Ordered Result Body Site URINE-NO MICRO Oct 29, 2017 SINGLE IMMUNIZATION ADMIN Oct 29, 2017 TDAP (BOOSTRIX) Oct 29, 2017 INSTRUCTIONS MEDICATIONS ADMINISTERED No Known Medications MEDICAL (GENERAL) HISTORY Type Description Date Surgical History dental extractions
--- OUTSIDE RECORDS SUMMARY | 2020-01-03 07:18 | XMS REPORT ---
Author Author Amirah ELY Organization [facility] Address [address] [place] [address] Care Team Providers Care Book Store Associate Name Role Phone JHOANAMARYA DELGADILLO Unavailable PROBLEMS Type Condition ICD9-CM Code XIX37-TQ Code Onset Dates Condition S tatus SNOMED Code Problem Need for rubella vaccination Z23 A ctive [id number] ALLERGIES No Known Allergies ENCOUNTERS Encounter Location Date Diagnosis [place] [address] [facility] [id number] [address] [place] [phone] Feb, [place] [address] [place] [id number] [address] [place] [address] Dec, care in third trime ster Z34.93 and 38 weeks gestation of Z3A.38 [place] [address] [facility] [id number] [address] [place] [phone] Nov, Third trimester Z3 4.93 and 37 weeks gestation of Z3A.37 [place] [address] [facility] [id number] [address] [place] [phone] Nov, screening for stre ptococcus B Z36.85 ; care in third trimester Z34.93 and Antepartum tachycardia affecting care of mother O36.8390 [place] [address] [facility] [id number] [address] [place] [phone] Nov, [place] [address] [place] [id number] [address] [place] [phone] Nov, care in third trime ster Z34.93 and 34 weeks gestation of Z3A.34 [place] [address] [facility] [id number] [address] [place] [phone] Oct, care in third trime ster Z34.93 and 32 weeks gestation of Z3A.32 [place] [address] [facility] [id number] [address] [place] [phone] 08 Oct, 2017 care in third trime ster Z34.93 ; Evaluate anatomy not seen on prior sonogram Z36.2 ; Breech presentation, single or unspecified fetus O32.1XX0 ; 30 weeks gestation of Z3A.30 and Encounter for immunization Z23 [place] [address] [facility] [id number] [address] [place] [phone] 15 Sep, 2017 Abnormal glucose tolerance i n O99.810 and Abnormal glucose tolerance test in O99.810 [place] [address] [place] [id number] [address] [place] [phone] 09 Sep, 2017 26 weeks gestation of pregna ncy Z3A.26 ; Diabetes mellitus screening Z13.1 ; Second trimester Z34.92 and Evaluate anatomy not seen on prior sonogram Z36.2 [place] [address] [facility] [id number] [address] [place] [phone] Aug, care, first pregnan cy in second trimester Z34.02 [place] [address] [facility] [id number] [address] [place] [phone] 07 Aug, 2017 21 weeks gestation of pregna ncy Z3A.21 and care, first in second trimester Z34.02 [place] [address] [facility] [id number] [address] [place] [phone] Jun, care, first pregnan cy in second trimester Z34.02 and 15 weeks gestation of Z3A.15 [place] [address] [facility] [id number] [address] [place] [phone] May, Threatened miscarriage O20.0 ; Urinary tract infection in mother during first trimester of O23.41 and 10 weeks gestation of Z3A.10 [place] [address] [facility] [id number] [address] [place] [phone] May, [place] [address] [place] [id number] [address] [place] [phone] Apr, Threatened miscarriage O20.0 ; Normal , first Z34.00 and 8 weeks gestation of Z3A.08 [facility] [address] [place] [id number] [address] [place] [phone] Apr, [facility] [address] [place] [id number] [address] [place] [phone] Apr, Encounter for test Z32.00 [facility] [address] [place] [phone] Dec, [place] [address] [place] [phone] Dec, [facility] [address] [place] [id number] [address] [place] [phone] Sep, IMMUNIZATIONS No Known Immunizations SOCIAL HISTORY Never Assessed REASON FOR VISIT 4 WK F/U--tcuppettRN PLAN OF CARE Activity Details Follow Up 4 Weeks, 4 Weeks Reason: VITAL SIGNS Height 65.5 in 2017-07-17 Weight 209.6 lbs 2017-07-17 Temperature 97.6 degrees Fahrenheit 2017-07-17 Heart Rate 80 bpm 2017-07-17 Respiratory Rate 18 2017-07-17 BMI 34.349 kg/m2 2017-07-17 Blood pressure systolic 110 mmHg 2017-07-17 Blood pressure diastolic 64 mmHg 2017-07-17 MEDICATIONS Medication Instructions Dosage Frequency Start Date End Date Duration S tatus Vitamins - (Dis) Active RESULTS Name Result Date Reference Range UA OB DIP (IN HOUSE) 2017-07-17 Glucose negative Protein trace PDF Report 2017-07-17 PDF Report1 LCLS TETRA SCREEN 2017-07-17 Results Report Test Results: *Screen Negative* Gest. Age on Collection Date 17.7 Gestat. Age Based On LMP Maternal Age At LONG 27.6 Race Other Weight 209 Insulin Dep Diabetes No Multiple Gestation AFP Value 22.5 AFP MoM 0.67 hCG Value 51884 hCG MoM 1.35 uE3 Value 0.52 uE3 MoM 0.46 APRIL Value 97.37 APRIL MoM 0.68 [place] [address] DSR (Second Trimester) 1 [place] 574 DSR (By Age) 1 IN 885 T18 Risk Not increased T18 (By Age) 1:3447 Interpretation Comments: PDF . PROCEDURES Procedure Date Ordered Result Body Site URINE-NO MICRO Jul 17, 2017 ALPHA-FETOPROTEIN, SERUM Jul 17, 2017 VENIPUNCT, ROUTINE* Jul 17, 2017 ASSAY OF ESTRIOL Jul 17, 2017 INHIBIN A Jul 17, 2017 CHORIONIC GONADOTROPIN TEST Jul 17, 2017 INSTRUCTIONS MEDICATIONS ADMINISTERED No Known Medications MEDICAL (GENERAL) HISTORY Type Description Date Surgical History dental extractions
--- OUTSIDE RECORDS SUMMARY | 2020-01-03 07:18 | XMS REPORT ---
Author Author Amirah ELY Organization [facility] Address [address] [place] [address] Care Team Providers Care Office Copy Selector Name Role Phone JHOANADEVONTEY Unavailable PROBLEMS Type Condition ICD9-CM Code IXX11-SB Code Onset Dates Condition S tatus SNOMED Code Problem Need for rubella vaccination Z23 A ctive [id number] ALLERGIES No Information ENCOUNTERS Encounter Location Date Diagnosis [place] [id number] [address] [place] [address] Feb, Evaluation regarding contrac eption options Z30.09 and examination following vaginal delivery Z39.2 [place] [id number] [address] [place] [address] Dec, care in third trime ster Z34.93 and 38 weeks gestation of Z3A.38 [place] [id number] [address] [place] [address] Nov, Third trimester Z3 4.93 and 37 weeks gestation of Z3A.[address] [place] [address] Nov, screening for stre ptococcus B Z36.85 ; care in third trimester Z34.93 and Antepartum tachycardia affecting care of mother O36.8390 [address] [place] [address] Nov, [place] [id number] [address] [place] [address] Nov, care in third trime ster Z34.93 and 34 weeks gestation of Z3A.34 [place] [address] [address] [place] [id number] [address] [place] [address] 23 Oct, 2017 care in third trime ster Z34.93 and 32 weeks gestation of Z3A.32 [place] [address] [address] [place] [id number] [address] [place] [address] 08 Oct, 2017 care in third trime ster Z34.93 ; Evaluate anatomy not seen on prior sonogram Z36.2 ; Breech presentation, single or unspecified fetus O32.1XX0 ; 30 weeks gestation of Z3A.30 and Encounter for immunization Z23 [place] [address] [address] [facility] [id number] [address] [place] [address] Sep, Abnormal glucose tolerance i n O99.810 and Abnormal glucose tolerance test in O99.810 [place] [address] [address] [place] [id number] [address] [place] [address] 09 Sep, 2017 26 weeks gestation of pregna ncy Z3A.26 ; Diabetes mellitus screening Z13.1 ; Second trimester Z34.92 and Evaluate anatomy not seen on prior sonogram Z36.2 [place] [address] [place] [address] Aug, care, first pregnan cy in second trimester Z34.02 [place] [address] [address] [place] [id number] [address] [place] [address] 07 Aug, 2017 21 weeks gestation of pregna ncy Z3A.21 and care, first in second trimester Z34.02 [place] [address] [address] [place] [id number] [address] [place] [address] Jun, care, first pregnan cy in second trimester Z34.02 and 15 weeks gestation of Z3A.15 [place] [address] [address] [place] [id number] [address] [place] [address] May, Threatened miscarriage O20.0 ; Urinary tract infection in mother during first trimester of O23.41 and 10 weeks gestation of Z3A.10 [place] [address] [address] [place] [id number] [address] [place] [address] May, [facility] [address] [facility] [id number] [address] [place] [address] Apr, Threatened miscarriage O20.0 ; Normal , first Z34.00 and 8 weeks gestation of Z3A.08 [facility] [address] [id number] [address] [place] [phone] Apr, [facility] [address] [facility] [id number] [address] [place] [address] Apr, Encounter for test Z32.00 [facility] [address] [facility] [id number] [address] [place] [address] Dec, [facility] [address] [facility] [id number] [address] [place] [phone] Dec, [facility] [address] [facility] [id number] [address] [place] [address] Sep, IMMUNIZATIONS No Known Immunizations SOCIAL HISTORY Never Assessed REASON FOR VISIT OB f/u --nitin her PLAN OF CARE Activity Details Follow Up 2 Weeks, 2 Weeks, 2 Weeks Re ason: VITAL SIGNS Height 65.5 in 2017-11-23 Weight 225.0 lbs 2017-11-23 Temperature 98.1 degrees Fahrenheit 2017-11-23 BMI 36.873 kg/m2 2017-11-23 Blood pressure systolic 120 mmHg 2017-11-23 Blood pressure diastolic 76 mmHg 2017-11-23 MEDICATIONS Medication Instructions Dosage Frequency Start Date End Date Duration S tatus Vitamins - (Dis) Active RESULTS Name Result Date Reference Range UA OB DIP (IN HOUSE) 2017-11-23 Glucose neg Protein trace PROCEDURES Procedure Date Ordered Result Body Site URINE-NO MICRO November 23, 2017 INSTRUCTIONS MEDICATIONS ADMINISTERED No Known Medications MEDICAL (GENERAL) HISTORY Type Description Date Surgical History dental extractions
--- OUTSIDE RECORDS SUMMARY | 2020-01-03 07:18 | XMS REPORT ---
Author Author Amirah ELY Organization [facility] Address [address] [place] [address] Care Team Providers Care Socket Puller Name Role Phone JHOANADEVONTEY Unavailable PROBLEMS Type Condition ICD9-CM Code YHN36-KS Code Onset Dates Condition S tatus SNOMED Code Problem Need for rubella vaccination Z23 A ctive [id number] ALLERGIES No Information ENCOUNTERS Encounter Location Date Diagnosis [place] [id number] [place] [phone] Feb, Evaluation regarding contrac eption options Z30.09 and examination following vaginal delivery Z39.2 [place] [id number] [place] [phone] Dec, care in third trime ster Z34.93 and 38 weeks gestation of Z3A.38 [place] [id number] [address] [place] [phone] Nov, Third trimester Z3 4.93 and 37 weeks gestation of Z3A.[address] [place] [phone] Nov, screening for stre ptococcus B Z36.85 ; care in third trimester Z34.93 and Antepartum tachycardia affecting care of mother O36.8390 [place] [address] [place] [phone] Nov, [place] [id number] [place] [phone] Nov, care in third trime ster Z34.93 and 34 weeks gestation of Z3A.34 [place] [address] [address] [place] [id number] [address] [place] [phone] 23 Oct, 2017 care in third trime ster Z34.93 and 32 weeks gestation of Z3A.32 [place] [address] [address] [place] [id number] [place] [phone] 08 Oct, 2017 care in third trime ster Z34.93 ; Evaluate anatomy not seen on prior sonogram Z36.2 ; Breech presentation, single or unspecified fetus O32.1XX0 ; 30 weeks gestation of Z3A.30 and Encounter for immunization Z23 [place] [address] [facility] [id number] [address] [place] [phone] Sep, Abnormal glucose tolerance i n O99.810 and Abnormal glucose tolerance test in O99.810 [place] [address] [address] [place] [id number] [place] [phone] 09 Sep, 2017 26 weeks gestation of pregna ncy Z3A.26 ; Diabetes mellitus screening Z13.1 ; Second trimester Z34.92 and Evaluate anatomy not seen on prior sonogram Z36.2 [place] [address] [place] [phone] Aug, care, first pregnan cy in second trimester Z34.02 [place] [address] [address] [place] [id number] [place] [phone] 07 Aug, 2017 21 weeks gestation of pregna ncy Z3A.21 and care, first in second trimester Z34.02 [place] [address] [address] [place] [id number] [place] [phone] Jun, care, first pregnan cy in second trimester Z34.02 and 15 weeks gestation of Z3A.15 [place] [address] [address] [place] [id number] [place] [phone] May, Threatened miscarriage O20.0 ; Urinary tract infection in mother during first trimester of O23.41 and 10 weeks gestation of Z3A.10 [place] [address] [address] [place] [id number] [place] [phone] May, [facility] [address] [facility] [id number] [address] [place] [phone] Apr, Threatened miscarriage O20.0 ; Normal , first Z34.00 and 8 weeks gestation of Z3A.08 [facility] [address] [id number] [address] [place] [phone] Apr, [facility] [address] [facility] [id number] [address] [place] [phone] Apr, Encounter for test Z32.00 [facility] [address] [id number] [address] [place] [phone] Dec, [facility] [address] [facility] [id number] [address] [place] [phone] Dec, [facility] [address] [facility] [id number] [address] [place] [phone] Sep, IMMUNIZATIONS No Known Immunizations SOCIAL HISTORY Never Assessed REASON FOR VISIT 4 WK F/U -- nitin her PLAN OF CARE Activity Details Follow Up 2 Weeks, 2 Weeks, 2 Weeks, 4 Weeks Reason: VITAL SIGNS Height 65.5 in 2017-09-29 Weight 218.0 lbs 2017-09-29 Temperature 97.6 degrees Fahrenheit 2017-09-29 BMI 35.725 kg/m2 2017-09-29 Blood pressure systolic 116 mmHg 2017-09-29 Blood pressure diastolic 78 mmHg 2017-09-29 MEDICATIONS Medication Instructions Dosage Frequency Start Date End Date Duration S tatus Vitamins - (Dis) Active RESULTS No Results PROCEDURES Procedure Date Ordered Result Body Site URINE-NO MICRO Sep 29, 2017 COMPLETE CBC W/AUTO DIFF WBC Sep 29, 2017 GLUCOSE TEST Sep 29, 2017 VENIPUNCT, ROUTINE* Sep 29, 2017 INSTRUCTIONS MEDICATIONS ADMINISTERED No Known Medications MEDICAL (GENERAL) HISTORY Type Description Date Surgical History dental extractions
--- OUTSIDE RECORDS SUMMARY | 2020-01-03 07:18 | XMS REPORT | Continuity of Care Document ---
Author Organization Unknown Address Unknown Phone Unavailable Allergies Active Description Code Type Severity Reaction Onset Reported/Identified Relationship to Patient Clinical Status Yes No Known Drug Allergies [id number] Drug Allergy Unknown N/A 12/27/2017 Medications There is no data. Problems Date Dx Coded Attending Type Code Diagnosis Diagnosed By 10/01/2013 GAUTAM MCCLAIN DO 789.00 ABDOMINAL PAIN UNSPECIFIED SITE 05/28/2017 MARYA ELY MD Ot O20 .0 THREATENED 05/28/2017 MARYA ELY MD Ot Z3A.01 LESS THAN 8 WEEKS GESTATION OF 09/03/2017 MARYA ELY MD Ot O20 .0 THREATENED 09/03/2017 MARYA ELY MD Ot Z3A.01 LESS THAN 8 WEEKS GESTATION OF 09/17/2017 MARYA ELY MD Ot Z34.92 ENCNTR FOR SUPRVSN OF NORMAL PREG, UNSP, 09/17/2017 MARYA ELY MD Ot Z3A.22 22 WEEKS GESTATION OF 10/08/2017 MARYA ELY MD Ot O20 .0 THREATENED 10/08/2017 MARYA ELY MD Ot Z3A.01 [...] OF NORMAL FIRST PREG, 10/21/2017 MARYA ELY MD, Ot Z3A.27 27 WEEKS GESTATION OF 11/03/2017 MARYA ELY MD, Ot O20 .0 THREATENED 11/03/2017 MARYA ELY MD, Ot Z3A.01 LESS THAN 8 WEEKS GESTATION OF 11/03/2017 MARYA ELY MD Ot Z34.92 ENCNTR FOR SUPRVSN OF NORMAL PREG, UNSP, 11/03/2017 MARYA ELY MD, Ot Z3A.22 22 WEEKS GESTATION OF 11/03/2017 MARYA ELY MD, Ot Z34.02 ENCNTR FOR SUPRVSN OF NORMAL FIRST PREG, 11/03/2017 MARYA ELY MD, Ot Z3A.27 27 WEEKS GESTATION OF 11/03/2017 MARYA ELY MD, Ot O99.810 ABNORMAL GLUCOSE COMPLICATING 11/04/2017 MARYA ELY MD, Ot Z36 .2 ENCOUNTER FOR OTHER SCREENING 11/18/2017 MARYA ELY MD, Ot Z36 .2 ENCOUNTER FOR OTHER SCREENING 12/08/2017 MARYA ELY MD, Ot O36.8390 MATERN CARE FOR ABNLT FETL HRT RATE OR R 12/08/2017 MARYA ELY MD, Ot Z34.93 ENCNTR FOR SUPRVSN OF NORMAL PREG, UNSP, 12/08/2017 MARYA ELY MD, Ot Z3A.31 31 WEEKS GESTATION OF 12/29/2017 MARYA ELY MD Ot O70 .0 FIRST DEGREE PERINEAL LACERATION DURING 12/29/2017 MARYA ELY MD Ot O71.82 OTHER SPECIFIED TRAUMA TO PERINEUM AND V 12/29/2017 MARYA ELY MD Ot Z23 ENCOUNTER FOR IMMUNIZATION 12/29/2017 MARYA ELY MD, Ot Z37 .0 SINGLE LIVE 12/29/2017 MARYA ELY MD, Ot Z3A.39 39 WEEKS GESTATION OF Procedures Code Description Performed By Per virgilio On [id number] RE PAIR PERINEUM SKIN, EXTERNAL APPROACH 12/28/2017 [id number] RE PAIR VULVA, EXTERNAL APPROACH 12/28/2017 [id number] HERNANDEZ OF PRODUCTS OF CONCEPTION, EXTE 12/28/2017 Results Test Result Range Genital Culture, Routine - 05/14/17 13:4 6 Genital Culture, Routine Note Urine Culture, Routine - 05/14/17 13:46 Urine Culture, Routine Note CULTURE, GENITAL - 05/14/17 13:46 Genital Culture, Routine Final report N RG Result 1 NRG CULTURE, URINE - 05/14/17 13:46 Urine Culture, Routine Final report NRG Result 1 Klebsiella pneumoniae NRG Antimicrobial Susceptibility N RG PDF Report - 05/14/17 13:48 PDF Report1 LCLS NRG Pap Lb, rfx HPV ASCU - 05/14/17 13:48 DIAGNOSIS: Comment Specimen adequacy: Comment Clinician provided ICD10: Comment Performed by: Comment . . Note: Comment . Comment CBC With Differential/Platelet - 7 14:04 WBC 7.1 x10E3/uL 3.4-10.8 RBC 4.70 x10E6/uL 3.77-5.28 Hemoglobin 12.6 g/dL 11.1-15.9 Hematocrit 37.6 % 34.0-46.6 MCV 80 fL 79-97 MCH 26.8 pg 26.6-33.0 MCHC 33.5 g/dL 31.5-35.7 RDW 15.0 % 12.3-15.4 Platelets 262 x10E3/uL 150-379 Neutrophils 70 % Lymphs 21 % Monocytes 7 % Eos 1 % Basos 1 % Neutrophils (Absolute) 4.9 x10E3/uL 1.4- 7.0 Lymphs (Absolute) 1.5 x10E3/uL 0.7-3.1 Monocytes(Absolute) 0.5 x10E3/uL 0.1-0.9 Eos (Absolute) 0.1 x10E3/uL 0.0-0.4 Baso (Absolute) 0.0 x10E3/uL 0.0-0.2 Immature Granulocytes 0 % Immature Grans (Abs) 0.0 x10E3/uL 0.0-0. 1 ABO Grouping and Rho(D) Typing - 7 14:04 ABO Grouping B Rh Factor Positive TSH - 06/11/17 14:04 TSH 0.311 uIU/mL 0.450-4.500 Rubella Antibodies, IgG - 06/11/17 14:04 Rubella Antibodies, IgG <0.90 index Immu ne >0.99 Antibody Screen - 06/11/17 14:04 Antibody Screen Negative Negative Urine Culture, Routine - 06/11/17 14:04 Urine Culture, Routine Note RUBELLA ANTIBODIES, IgG - 06/11/17 14:04 Rubella Antibodies, IgG <0.90 index Immu ne >0.99 CULTURE, URINE - 06/11/17 14:04 Urine [...] 22.5 ng/mL AFP MoM 0.67 hCG Value 05002 mIU/mL hCG MoM 1.35 uE3 Value 0.52 ng/mL uE3 MoM 0.46 APRIL Value 97.37 pg/mL APRIL MoM 0.68 [place] [address] DSR (Second Trimester) 1 IN 574 DSR [...] NRG AFP MoM 0.67 NRG hCG Value 70997 mIU/mL NRG hCG MoM 1.35 NRG uE3 Value 0.52 ng/mL NRG uE3 MoM 0.46 NRG APRIL Value 97.37 pg/mL NRG APRIL MoM 0.68 [place] [address] NRG DSR (Second Trimester) 1 IN 574 NR G DSR (By Age) 1 IN 885 NRG T18 Risk Not increased NRG T18 (By Age) 1:3447 NRG Interpretation NRG Comments: NRG PDF . NRG CBC - 09/29/17 09:55 WHITE BLOOD CELL COUNT 9.2 Thousand/uL 3 .8-10.8 RED BLOOD CELL COUNT 4.31 Million/uL 3.8 0-5.10 HEMOGLOBIN 11.8 g/dL 11.7-15.5 HEMATOCRIT 36.2 % 35.0-45.0 MCV 84.0 fL 80.0-100.0 MCH 27.4 pg 27.0-33.0 MCHC 32.6 g/dL 32.0-36.0 RDW 12.9 % 11.0-15.0 PLATELET COUNT 283 Thousand/uL 140-400 MPV 9.6 fL 7.5-12.5 ABSOLUTE NEUTROPHILS 6624 cells/uL 1500- 7800 ABSOLUTE LYMPHOCYTES 1960 cells/uL 850-3 900 ABSOLUTE MONOCYTES 405 cells/uL 200-950 ABSOLUTE EOSINOPHILS 138 cells/uL 15-500 ABSOLUTE BASOPHILS 74 cells/uL 0-200 NEUTROPHILS 72 % NRG LYMPHOCYTES 21.3 % NRG MONOCYTES 4.4 % NRG EOSINOPHILS 1.5 % NRG BASOPHILS 0.8 % NRG Capillary blood glucose measurement by g lucometer (mass/volume) - 10/08/17 09:44 Capillary blood glucose measurement by glucometer (mas s/volume) 81 mg/dL 70-110 Serum or plasma glucose measurement 3 ho urs post challenge (mass/volume) - 10/08/17 09:46 Serum or plasma glucose measurement 3 ho urs post challenge (mass/volume) NRG CULTURE, GROUP B STREP (VAGINAL) - 12/07 16:04 STREPTOCOCCUS, GROUP B CULTURE SEE NOTE NRG Complete urinalysis with reflex to cultu re - 12/27/17 22:15 Urine color determination YELLOW NRG Urine clarity determination CLEAR NR G Urine pH measurement by test strip 6 5-9 Specific gravity of urine by test strip 1.020 1.016-1.022 Urine protein assay by test strip, semi-quantitative 1+ NEGATIVE Urine glucose detection by automated test strip NE GATIVE NEGATIVE Erythrocytes detection in urine sediment by light micr oscopy 2+ NEGATIVE Urine ketones detection by automated test strip NE GATIVE NEGATIVE Urine nitrite detection by test strip NEGATIVE NEGATIVE Urine total bilirubin detection by test strip NEGA TIVE NEGATIVE Urine urobilinogen measurement by automated test strip (mass/volume) 1 mg/dL NORMAL Urine leukocyte esterase detection by dipstick 3+ NEGATIVE Automated urine sediment erythrocyte cou nt by microscopy (number/high power field) [HPF] NRG Automated urine sediment leukocyte count by microscopy (number/high power field) [HPF] NRG Bacteria detection in urine sediment by light microsco py MODERATE NRG Squamous epithelial cells detection in u rine sediment by light microscopy 5-10 NRG Crystals detection in urine sediment by light microsco py NONE NRG Casts detection in urine sediment by light microscopy NONE NRG Mucus detection in urine sediment by light microscopy MODERATE NRG Complete urinalysis with reflex to culture NO NRG Bacterial urine culture - 12/27/17 22:15 Bacterial urine culture [id number] NRG COLONY COUNT >100,000/ML NRG FTX;REPORTABLE SENSITIVITY NOT USUALLY PERFORMED O N NRG URINE CULTURE RESULTS PLUS NRG FREE TEXT ENTRY 2 THESE ISOLATES. NRG Complete blood count (CBC) with automate d white blood cell (WBC) differential - 12/27/17 22:50 Blood leukocytes automated count (number/volume) 16.4 10*3/uL 4.3-11.0 Blood erythrocytes automated count (number/volume) 4.74 10*6/uL 4.35-5.85 Venous blood hemoglobin measurement (mass/volume) 12.7 g/dL 11.5-16.0 Blood hematocrit (volume fraction) 36 % 35-52 Automated erythrocyte mean corpuscular volume 75 [ foz_us] 80-99 Automated erythrocyte mean corpuscular h emoglobin (mass per erythrocyte) 27 pg 25-34 Automated erythrocyte mean corpuscular h emoglobin concentration measurement (mass/volume) 36 g/dL 32-36 Automated erythrocyte distribution width ratio 13. 6 % 10.0- 14.5 Automated blood platelet count (count/volume) 301 10*3/uL 130-400 Automated blood platelet mean volume measurement 9.3 [foz_us] 7.4-10.4 Automated blood neutrophils/100 leukocytes 87 % 42-75 Automated blood lymphocytes/100 leukocytes 8 % 12-44 Blood monocytes/100 leukocytes 5 % 0-12 Automated blood eosinophils/100 leukocytes 0 % 0-10 Automated blood basophils/100 leukocytes 0 % 0-10 Blood neutrophils automated count (number/volume) 14.3 10*3 1.8-7.8 Blood lymphocytes automated count (number/volume) 1.3 10*3 1.0-4.0 Blood monocytes automated count (number/volume) 0. 7 10*3 0.0-1.0 Automated eosinophil count 0.1 10*3/uL 0 .0-0.3 Automated blood basophil count (count/volume) 0.0 10*3/uL 0.0-0.1 Blood type T Indirect antibody screen pa ade - 12/27/17 22:50 ABO+Rh group BP NRG Transfusion band number [id number] NRG Blood group antibody screen NEGATIVE NR G Complete blood count (CBC) with automate d white blood cell (WBC) differential - 12/29/17 05:15 Blood leukocytes automated count (number/volume) 12.9 10*3/uL 4.3-11.0 Blood erythrocytes automated count (number/volume) 3.97 10*6/uL 4.35-5.85 Venous blood hemoglobin measurement (mass/volume) 10.6 g/dL 11.5-16.0 Blood hematocrit (volume fraction) 30 % 35-52 Automated erythrocyte mean corpuscular volume 76 [ foz_us] 80-99 Automated erythrocyte mean corpuscular h emoglobin (mass per erythrocyte) 27 pg 25-34 Automated erythrocyte mean corpuscular h emoglobin concentration measurement (mass/volume) 35 g/dL 32-36 Automated erythrocyte distribution width ratio 13. 5 % 10.0- 14.5 Automated blood platelet count (count/volume) 253 10*3/uL 130-400 Automated blood platelet mean volume measurement 9.4 [foz_us] 7.4-10.4 Automated blood neutrophils/100 leukocytes 71 % 42-75 Automated blood lymphocytes/100 leukocytes 21 % 12-44 Blood monocytes/100 leukocytes 7 % 0-12 Automated blood eosinophils/100 leukocytes 2 % 0-10 Automated blood basophils/100 leukocytes 1 % 0-10 Blood neutrophils automated count (number/volume) 9.1 10*3 1.8-7.8 Blood lymphocytes automated count (number/volume) 2.7 10*3 1.0-4.0 Blood monocytes automated count (number/volume) 0. 9 10*3 0.0-1.0 Automated eosinophil count 0.2 10*3/uL 0 .0-0.3 Automated blood basophil count (count/volume) 0.1 10*3/uL 0.0-0.1 Encounters ACCT No. Visit Date/Time Discharge Status Pt. Type Provider Facility Loc./Unit Complaint [id number] 10/01/2013 09:47:00 10/01/2013 23:59: 59 CLS Outpatient GAUTAM MCCLAIN DO [id number] 06/12/2017 14:09:00 Document Registration [id number] 05/17/2017 10:06:00 Document Registration [id number] 05/16/2017 20:06:00 Document Registration [id number] 06/13/2017 03:07:00 Document Registration [id number] 07/20/2017 22:07:00 Document Registration [id number] 02/19/2018 08:20:00 02/19/2018 23:59:5 9 CLS Outpatient NILA MARCUS [facility] [place] [id number] 12/07/2017 14:20:00 Document Registration [id number] 09/29/2017 08:40:00 Document Registration [id number] 07/17/2017 08:20:00 Document Registration [id number] 06/11/2017 13:20:00 Document Registration [id number] 05/14/2017 09:00:00 Document Registration [id number] 12/27/2017 22:09:00 018 12:40:00 DIS Inpatient MARYA ELY MD [facility] LDRP LABOR [id number] 12/07/2017 17:01:00 018 23:59:59 CLS Outpatient MARYA ELY MD [facility] RAD Z34.93,[id number] [id number] 11/03/2017 13:00:00 018 23:59:59 CLS Outpatient MARYA ELY MD [facility] RAD Z36.2 [id number] 10/08/2017 09:27:00 018 23:59:59 CLS Outpatient MARYA ELY MD [facility] LAB O99.810 [id number] 10/06/2017 10:09:00 018 23:59:59 CLS Outpatient MARYA ELY MD [facility] RAD CARE [id number] 09/03/2017 11:01:00 017 23:59:59 CLS Outpatient MARYA ELY MD [facility] RAD 21 WKS GESTATION OF PRE GNANCY [id number] 05/14/2017 10:47:00 017 23:59:59 CLS Outpatient JHOANA CABALLERO, MARYA Kear[place] [facility] RAD 020.0 THREATENED MISCAR MAYDA [id number] 05/19/2017 16:07:00 Document Registration
--- NOTE | 2020-01-03 07:29 | ED EENT ---
History of Present Illness General Chief Complaint: Oral/Throat Problems Stated Complaint: THROAT DISCOMFORT Source: patient History of Present Illness Date Seen by Provider: Jan 03, 2020 Time Seen by Provider: 07:20 Initial Comments 29-year-old female presents with "throat discomfort" patient reports that his been going on for about a month and a half. She reports that it started after a dental procedure. She has a swollen area in the left side of her neck that is kind of tender. She reports that she was seen by her primary about a week week ago and was started on 5 days of steroids. She has not taken any antibiotics. A lab review from 12/30/19 shows that she had an elevated white count. Patient denies any fevers chills cough nausea vomiting or other systemic complaints. Allergies and Home Medications Allergies Coded Allergies: No Known Drug Allergies (Unverified , 12/27/17) Home Medications Ibuprofen 600 Mg Tablet, 600 MG PO Q6H PRN for PAIN-MILD TO MODERATE Prescribed by: HARINDER TORRES on 12/29/17 1018 Vit W-Ca,Fe,FA(<1 mg) 1 Each Tablet, 1 EACH PO DAILY, (Reported) Sulfamethoxazole/Trimethoprim 1 Each Tablet, 1 EACH PO BID Prescribed by: JACKSON GIBBS on 01/03/20 0730 Patient Home Medication List Home Medication List Reviewed: Yes Review of Systems Review of Systems Constitutional: No chills, No fever Ears: No Symptoms Reported Nose: no symptoms reported Mouth: no symptoms reported Throat: see HPI Respiratory: no symptoms reported Cardiovascular: no symptoms reported Gastrointestinal: no symptoms reported Musculoskeletal: no symptoms reported Skin: no symptoms reported Past Vyumakb-Nkcbzr-Gzznfx Hx Past Med/Social Hx: Reviewed Nursing Past Med/Soc Hx Patient Social History Recent Foreign Travel: No Contact w/Someone Who Travel: No Recent Hopitalizations: No Immunizations Up To Date Tetanus Booster (TDap): Less than 5yrs Seasonal Allergies Seasonal Allergies: No Past Medical History Surgeries: No Respiratory: No Cardiac: No Neurological: No Sexually Transmitted Disease: No HIV/AIDS: No Genitourinary: No Gastrointestinal: No Musculoskeletal: No Endocrine: No HEENT: No Cancer: No Psychosocial: No Integumentary: No Blood Disorders: No Adverse Reaction/Blood Tranf: No Family Medical History Patient reports no known family medical history. Physical Exam Vital Signs Vital Signs - First Documented 01/03/20 07:21 Temp 36.3 Pulse 89 Resp 18 B/P (MAP) 143/72 (95) Pulse Ox 100 O2 Delivery Room Air Height, Weight, BMI Height: 5'5.00" Weight: 232lbs. 0.0oz. 105.038389ff; 38.6 BMI Method: General Appearance: WD/WN, no apparent distress Eyes: bilateral eye normal inspection, bilateral eye PERRL Nose: normal inspection Mouth/Throat: normal mouth inspection; No tonsillar exudate, No tonsillar swe lling Neck: lymphadenopathy (L) Cardiovascular: normal peripheral pulses, regular rate, rhythm Respiratory: no respiratory distress, no accessory muscle use Gastrointestinal: non tender, soft Neurologic/Psychiatric: alert, normal mood/affect, oriented x 3 Progress/Results/Core Measures Results/Orders Vital Signs/I&O 01/03/20 01/03/20 07:21 07:30 Temp 36.3 Pulse 89 89 Resp 18 18 B/P (MAP) 143/72 (95) 143/72 Pulse Ox 100 100 O2 Delivery Room Air Room Air Progress Progress Note : Time: 07:26 Progress Note Patient with left-sided anterior lymphadenopathy. She also has an elevated white count on lab review. I will start her on Bactrim for pharyngitis and lymp hadenopathy. I discussed with her the need to follow-up with her primary care provider in 7-10 days. If she continues to have swollen lymph nodes and symptoms she may need a biopsy, CT or EGD. Patient is stable will be discharged Departure Impression Primary Impression: Lymphadenopathy of left cervical region Additional Impression: Pharyngitis Qualified Codes: J02.9 - Acute pharyngitis, unspecified Disposition: HOME, SELF-CARE Condition: Stable Departure-Patient Inst. Referrals: MARYA ELY MD (PCP/Family) Primary Care Physician Patient Instructions: Sore Throat in Adults, Lymphadenitis (DC) Add. Discharge Instructions: Emergency department focuses on treating and ruling out life-threatening diseases. Whenever possible, a diagnosis is given. However, most patients are given an impression based on their history, physical exam, and workup during your brief time in the ER. Information about probable diagnosis and other educational material has been provided. Please take the time to read and understand this information. It is very important that you follow up with a physician as discussed during the visit today. Failure to adhere to your follow-up instructions may lead to severe disability, injury, or so please make sure to keep your appointments or obtain one as requested. Please keep in mind the emergency department is not designed to your primary care or "family doctor" and nonurgent issues are best evaluated by an outpatient physician All discharge instructions reviewed with patient and/or family. Voiced understanding. Scripts Sulfamethoxazole/Trimethoprim (Bactrim Ds Tablet) 1 Each Tablet 1 EACH PO BID for 5 Days, #10 TAB Prov: JACKSON GIBBS DO 01/03/20 JACKSON GIBBS DO Jan 03, 2020 07:29
[2020-01-03 07:30] VITALS: BP 143/72
[2020-01-03] MEDS ORDERED: SULF1TAB35 PO (07:30)
== END 2020-01-03 07:30 | disposition home or self-care (01) ==
LOC: EDUNIT# 07:11 → ER 07:12
DX: R59.0 Localized enlarged lymph nodes (principal); J02.9 Acute pharyngitis, unspecified
CPT/HCPCS: 99282

== ENCOUNTER → 2020-06-28 | Outpatient (CLI) | payer BC ==
[~2020-06-28] VITALS: Ht 167.7 cm; Wt 99.1 kg
[~2020-06-28] MED LIST changes: +LIDOCAINE 1% INJ 20 ML 20 ML VIAL INJ ONE; +SULF1TAB35 PO
--- NOTE | 2020-06-28 12:44 | Diagnostic Imaging Report ---
INDICATION: Thyroid nodules. Patient presents for ultrasound-guided thyroid biopsy. DETAILS OF PROCEDURE: Patient was brought to the procedure room and placed on table in the supine position. Ultrasound imaging of the right neck was performed to evaluate appropriate entry site. Evaluation of the midline and left neck was also performed to evaluate for entry site. Neck was prepped and draped in sterile fashion. A small amount of 1% lidocaine was utilized for local anesthesia. A total of three passes were made into the dominant nodule mid aspect right lobe of thyroid that contains calcifications utilizing 25-gauge needles and fine-needle aspiration technique. Solitary pass was made with a Rotex needle and Rotex biopsy was performed. A total of three passes were made into the dominant nodule in the right aspect of the isthmus utilizing 25-gauge needles and fine-needle aspiration technique. A single pass was made with a Rotex needle and Rotex biopsy was performed. A total of three passes were made into the dominant hypoechoic nodule in the left mid thyroid lobe utilizing 25-gauge needles and fine-needle aspiration technique. A solitary pass was made with a Rotex needle and Rotex biopsy was performed. IMPRESSION: Successful ultrasound-guided fine-needle aspiration and Rotex biopsy of right and left lobe thyroid nodules as well as isthmus nodule, as described. Pathology results are currently pending. Dictated by: Dictated on workstation # [id number]
== END ==
LOC: RAD 10:45
PROVIDERS: ATTEND Family Medicine
DX: E04.2 Nontoxic multinodular goiter (principal)
CPT/HCPCS: 19286; 88173

== ENCOUNTER → 2020-10-18 | Outpatient (CLI) | payer BC ==
[~2020-10-18] MED LIST changes: -LIDOCAINE 1% INJ 20 ML 20 ML VIAL INJ ONE
--- NOTE | 2020-10-18 16:55 | Diagnostic Imaging Report ---
INDICATION: patient, history of recent low amniotic fluid index. Limited study is performed for followup. No previous studies during this for comparison. Limited views demonstrate amniotic fluid index of 11.88 cm. heart rate is 138 bpm. Placenta is grade 2 and anterior with no evidence of previa. The fetus is in breech presentation at this time. Cervical length was 4.1 cm. IMPRESSION: Limited study demonstrates an amniotic fluid index of 11.88 cm. There was no detectable abnormality. Dictated by: Dictated on workstation # [id number]
== END ==
LOC: RAD 14:52
PROVIDERS: ATTEND Family Medicine
DX: O28.8 Other abnormal findings on antenatal screening of mother (principal); Z3A.00 Weeks of gestation of pregnancy not specified
CPT/HCPCS: 76815

== ENCOUNTER 2020-12-21 06:00 | Inpatient (IN) | payer BC ==
[2020-12-21] VITALS (28 sets, daily range): BP systolic 98–154; BP diastolic 56–91
[~2020-12-21] VITALS: Ht 170.2 cm; Wt 103.1 kg
[2020-12-21] MEDS ORDERED: D5 LR IV SOLUTION 1,000 ML IV SCH (07:30)
[2020-12-21] MEDS ORDERED: MINERAL OIL CONCENTRATE 99.9% 15 ML UDC TOP PRN (07:30)
[2020-12-21] MEDS ORDERED: AMPICILLIN 2,000 MG/14.8 ML (IV USE) ONE (07:57)
[2020-12-21] MEDS ORDERED: WATER (STERILE) FOR INJECTION 20 ML ONE (07:57)
[2020-12-21 08:27] LABS: BASOPHILS # (AUTO) 0.1 10^3/uL (0.0-0.1); BASOPHILS % (AUTO) 1 % (0-10); EOSINOPHILS # (AUTO) 0.1 10^3/uL (0.0-0.3); EOSINOPHILS % (AUTO) 1 % (0-10); HEMATOCRIT 33 % (35-52); HEMOGLOBIN 10.9 g/dL (11.5-16.0); LYMPHOCYTES # (AUTO) 2.2 10^3/uL (1.0-4.0); LYMPHOCYTES % (AUTO) 20 % (12-44); MEAN CORPUSCULAR HEMOGLOBIN 25 pg (25-34); MEAN CORPUSCULAR HGB CONC 33 g/dL (32-36); MEAN CORPUSCULAR VOLUME 76 fL (80-99); MEAN PLATELET VOLUME 8.8 fL (9.0-12.2); MONOCYTES # (AUTO) 0.8 10^3/uL (0.0-1.0); MONOCYTES % (AUTO) 7 % (0-12); NEUTROPHILS # (AUTO) 7.7 10^3/uL (1.8-7.8); NEUTROPHILS % (AUTO) 71 % (42-75); PLATELET COUNT 261 10^3/uL (130-400); WHITE BLOOD COUNT 10.8 10^3/uL (4.3-11.0)
[2020-12-21] MEDS: OXYTOCIN PRE-MIX DRIP 500 ML IV SCH ×2 (08:48→13:30)
[2020-12-21 10:27] LABS: BILIRUBIN,URINE NEGATIVE (NEGATIVE); CLARITY,URINE CLEAR; COLOR,URINE YELLOW; GLUCOSE, URINE (UA) NEGATIVE (NEGATIVE); KETONES,URINE 1+ (NEGATIVE); LEUKOCYTE ESTERASE ,URINE 1+ (NEGATIVE); NITRITE,URINE NEGATIVE (NEGATIVE); PROTEIN,URINE NEGATIVE (NEGATIVE)
[2020-12-21] MEDS ORDERED: LIDOCAINE/EPI 2% 1:200,00 (XYLOCAINE) 10 ML VIAL ONE (10:27)
[2020-12-21 10:40] LABS: BACTERIA,URINE LARGE /HPF; RBC,URINE 0-2 /HPF; YEAST,URINE FEW /HPF
[2020-12-21] MEDS ORDERED: AMPICILLIN FOR IV USE 1,000 MG in WATER (STERILE) FOR INJECTION 7.4 ML IV SCH (11:30)
--- NOTE | 2020-12-21 11:32 | History & Physical-OB/GYN ---
ROMELIA KATE,MED STUDENT 12/21/20 1132: OB - Chief Complaint & HPI Date/Time Date of Admission: Date of Admission: Dec 21, 2020 at 06:43 Date seen by a Provider: Dec 21, 2020 Time Seen by a Provider: 07:40 Chief Complaint/History OB-Reason for Admission/Chief: Obstetrical Complication (IUGR) Hx : 2 Hx Para: 1 Hx Last Menstrual Period: 04/14/2020 Expected Date of Delivery: Dec 28, 2020 Gestational Age in Weeks: 39 Gestational Age in Days: 0 History of Labs B+, antibody neg, RI, HIV/HepB/RPR NR. GC/chlamydia neg. GBS + bacteriuria Other Patient presented to L&D for IOL. No concerns at this time, states she is having occasional contractions. Saw MFM on 12/17 Allergies and Home Medications Allergies Coded Allergies: No Known Drug Allergies (Unverified , 12/27/17) Home Medications Vit W-Ca,Fe,FA(<1 mg) 1 Each Tablet, 1 EACH PO DAILY, (Reported) Patient Home Medication List Home Medication List Reviewed: Yes OB - History Hx of Present Care: Yes (limited care. OB intake at 8 wk5d, next visit at 27w6d) Ultrasounds: Normal mid trimester US Obstetrical Complications: Growth Restriction Medical Complications: None Information Induced Hypertension: No Maternal Gestational Diabetes: No Hemorrhage: No Obstetrical History Hx : 2 Hx Para: 1 Hx # Term Pregnancies: 1 Hx # Pregnancies: 0 Number of Living Children: 1 Hx Termination: No Hx Multiple Gestation: No Hx Stillbirth: No Hx Complication: No Hx Induced Hypertens: No Hx Maternal Gestational Diabet: No Hx Hemorrhage: No Delivery History Hx Dystocia: No Hx Large For Gestational Age I: No Hx Small for Gestational Age I: No Hx Section: No Hx Vaginal Delivery Post C-Sec: No Hx Blood Disorders: No Adverse Rxn to Tranfusion: No Patient Past Medical History PMHx: Denies SurgHx: Denies Social History/Family History Alcohol Use: Denies Use Recreational Drug Use: No Smoking Cessation: Never smoker Immunizations Tetanus Booster (TDap): Less than 5yrs Date of Influenza Vaccine: Jul 13, 2020 Rubella: immune RPR/VDRL: Negative GBS Status: Positive HBsAG: Negative OB - Admission Exam Physical Exam Vitals: Vital Signs 12/21/20 12/21/20 07:30 10:45 Temp 36.8 Pulse 73 Resp 18 B/P (MAP) 112/65 (81) Pulse Ox 98 O2 Delivery Room Air HEENT: NCAT Heart: Rhythm Normal Lungs: Clear Abdomen: Non tender Extremities: Normal Cervical Dilatation: 4cm Effacement: Other (60) Station: -3 Membranes: Intact Heart Rate: 140's Accelerations: Accelerations Present Decelerations: No Decelerations Short Term Variability: Present Senior Living Variability: Average (6-25) Contractions on Admission: 6-10 Minutes Apart Overton Scoring Tool (Modified) Dilation (cm): 3-4cm (2) Effacement (%): 51-79% (2) Descent/Station: -3 (0) Cervix Consistency: Soft (2) Cervix Position: Posterior (0) Add 1 point for: Each previous vaginal delivery (1) Overton Score: 7 Labs Laboratory Tests Test 12/21/20 06:55 12/21/20 08:08 Range/Units Urine Color YELLOW Urine Clarity CLEAR Urine pH 6.0 5-9 Urine Specific [place] >=1.030 1.016-1.022 Urine Protein NEGATIVE NEGATIVE Urine Glucose (UA) NEGATIVE NEGATIVE Urine Ketones 1+ H NEGATIVE Urine Nitrite NEGATIVE NEGATIVE Urine Bilirubin NEGATIVE NEGATIVE Urine Urobilinogen 1.0 < = 1.0 MG/DL Urine Leukocyte Esterase 1+ H NEGATIVE Urine RBC (Auto) TRACE-I NEGATIVE Urine RBC 0-2 /HPF Urine WBC 10-25 H /HPF Urine Squamous Epithelial Cells 10-25 H /HPF Urine Crystals NONE /LPF Urine Bacteria LARGE H /HPF Urine Casts NONE /LPF Urine Mucus NEGATIVE /LPF Urine Yeast FEW H /HPF Urine Culture Indicated YES White Blood Count 10.8 4.3-11.0 10^3/uL Red Blood Count 4.29 3.80-5.11 10^6/uL Hemoglobin 10.9 L 11.5-16.0 g/dL Hematocrit 33 L 35-52 % Mean Corpuscular Volume 76 L 80-99 fL Mean Corpuscular Hemoglobin 25 25-34 pg Mean Corpuscular Hemoglobin Concent 33 32-36 g/dL Red Cell Distribution Width 13.1 10.0-14.5 % Platelet Count 261 130-400 10^3/uL Mean Platelet Volume 8.8 L 9.0-12.2 fL Immature Granulocyte % (Auto) 1 % Neutrophils (%) (Auto) 71 42-75 % Lymphocytes (%) (Auto) 20 12-44 % Monocytes (%) (Auto) 7 0-12 % Eosinophils (%) (Auto) 1 0-10 % Basophils (%) (Auto) 1 0-10 % Neutrophils # (Auto) 7.7 1.8-7.8 10^3/uL Lymphocytes # (Auto) 2.2 1.0-4.0 10^3/uL Monocytes # (Auto) 0.8 0.0-1.0 10^3/uL Eosinophils # (Auto) 0.1 0.0-0.3 10^3/uL Basophils # (Auto) 0.1 0.0-0.1 10^3/uL Immature Granulocyte # (Auto) 0.1 0.0-0.1 10^3/uL OB - Assessment/Plan/Diagnosis Assessment Assessment: induction of labor Admission Dx Term intrauterine at 39 weeks Rubella Immune Blood type B+ GBS + bacteriuria Induction of Labor IUGR Admission Status: Inpatient Order (span 2 midnights) Reason for Inpatient Admission: Labor, delivery, and course Plan Plan: Induction Induction Method: per Pitocin Protocol MARYA ELY MD 12/21/20 1359: Allergies and Home Medications Allergies Coded Allergies: No Known Drug Allergies (Unverified , 12/27/17) Home Medications Vit W-Ca,Fe,FA(<1 mg) 1 Each Tablet, 1 EACH PO DAILY, (Reported) Supervisory-Addendum Brief Verification & Attestation Participated in pt care: history, MDM, physical Personally performed: exam, history Care discussed with: Medical Student Procedures: n/a I repeated history and exam and my findings match those documented by OMS4 Romelia Kate. ROMELIA KATE,MED STUDENT Dec 21, 2020 11:32 MARYA ELY MD Dec 21, 2020 13:59
--- NOTE | 2020-12-21 13:52 | OB Labor & Delivery Record ---
ROMELIA CROCKETT,MED STUDENT 12/21/20 1352: Vag Delivery Note Vag Delivery Note Date of Delivery: 12/21/20 Preoperative Diagnosis: Amirah Dawn is a (30 /Para 2 / 1, Gestational Age (wks) 39 with 0 days Postoperative Diagnosis: Same Surgeon: Marya Ely MD Manager Unix: Romelia Crockett [email or web address] Anesthesia: None Delivery Type: Spontaneous Vaginal Delivery Findings: Viable female , apgars 8/9, weight 6 lb 6 oz Lacerations: clitoral abrasion, no repair needed Intact placenta with 3 vessel cord. No nuchal cord, body cord or shoulder dystocia. Estimated Blood Loss: 250 ml Complications: None Condition: Stable Description of Procedure: The patient is a 30 year old female who presented for induction of labor at 39 weeks gestation complicated by IUGR diagnosed by MFM. She was admitted and informed consent was obtained. Her labor course was unremarkable. She progressed to complete dilatation without analgesia and began to push. She was then set up for delivery. The 's head was delivered atraumatically in the CAITLIN position. The shoulders and remainder of the infant's body were then delivered without difficulty. Upon delivery the infant was placed on the maternal chest The cord was doubly clamped and cut and the remained on moms chest. An intact placenta with 3-vessel cord delivered via Frances and there was found to be minimal bleeding. Vigorous fundal massage was performed and the fundus was found to be firm. IV oxytocin was given. Examination of the vagina and perineum revealed a clitoral abrasion and no lacerations requiring repair. Sponge, instrument and needle counts were correct. Mom and baby were both in stable condition in the labor suite. Vitals - Labs Vital Signs - I&O Vital Signs Date Time Temp Pulse Resp B/P (MAP) Pulse Ox O2 Delivery O2 Flow Rate FiO2 12/21/20 12:00 18 Room Air 12/21/20 11:45 78 18 136/84 (101) Room Air 12/21/20 11:30 81 18 138/79 (98) Room Air 12/21/20 11:15 36.7 75 18 129/86 (100) Room Air 12/21/20 11:00 86 18 122/88 (99) Room Air 12/21/20 10:45 73 18 112/65 (81) Room Air 12/21/20 10:30 79 18 108/64 (79) Room Air 12/21/20 10:15 75 18 115/70 (85) Room Air 12/21/20 10:00 72 18 108/58 (75) Room Air 12/21/20 09:45 18 Room Air 12/21/20 09:30 77 18 98/59 (72) Room Air 12/21/20 09:15 18 Room Air 12/21/20 09:00 81 18 106/71 (83) Room Air 12/21/20 08:30 85 18 115/56 (75) Room Air 12/21/20 08:00 78 18 105/69 (81) Room Air 12/21/20 07:30 36.8 82 18 114/60 (78) 98 Room Air 12/21/20 07:20 36.8 82 18 98 Room Air Labs Laboratory Tests 12/21/20 06:55: Urine Color YELLOW, Urine Clarity CLEAR, Urine pH 6.0, Urine Specific [place] >=1.030, Urine Protein NEGATIVE, Urine Glucose (UA) NEGATIVE, Urine Ketones 1+H, Urine Nitrite NEGATIVE, Urine Bilirubin NEGATIVE, Urine Urobilinogen 1.0, Urine Leukocyte Esterase 1+H, Urine RBC (Auto) TRACE-I, Urine RBC 0-2, Urine WBC 10- 25H, Urine Squamous Epithelial Cells 10-25H, Urine Crystals NONE, Urine Bacteria LARGEH, Urine Casts NONE, Urine Mucus NEGATIVE, Urine Yeast FEWH, Urine Culture Indicated YES 12/21/20 08:08: White Blood Count 10.8, Red Blood Count 4.29, Hemoglobin 10.9L, Hematocrit 33L, Mean Corpuscular Volume 76L, Mean Corpuscular Hemoglobin 25, Mean Corpuscular Hemoglobin Concent 33, Red Cell Distribution Width 13.1, Platelet Count 261, Mean Platelet Volume 8.8L, Immature Granulocyte % (Auto) 1, Neutrophils (%) (Auto) 71, Lymphocytes (%) (Auto) 20, Monocytes (%) (Auto) 7, Eosinophils (%) (Auto) 1, Basophils (%) (Auto) 1, Neutrophils # (Auto) 7.7, Lymphocytes # (Auto) 2.2, Monocytes # (Auto) 0.8, Eosinophils # (Auto) 0.1, Basophils # (Auto) 0.1, Immature Granulocyte # (Auto) 0.1 MARYA ELY MD 12/21/20 1401: Supervisory-Addendum Brief Supervisory Addendum I was present for this entire procedure and agree with documentation by GILDA Crockett. ROMELIA CROCKETT,MED STUDENT Dec 21, 2020 13:52 MARYA ELY MD Dec 21, 2020 14:01
[2020-12-21] MEDS ORDERED: CATHETER FLUSH 10 ML SYR IV SCH ×2 (14:00→22:00)
[2020-12-21] MEDS ORDERED: AMPICILLIN FOR IV USE 2,000 MG in WATER (STERILE) FOR INJECTION 14.8 ML IV SCH (15:55)
[2020-12-21] MEDS ORDERED: WITCH HAZEL(TUCKS) 40 EA JAR TOP PRN (16:15)
[2020-12-21] MEDS ORDERED: OXYTOCIN PRE-MIX DRIP 500 ML IV SCH (16:15)
[2020-12-21] MEDS ORDERED: BENZOCAINE/MENTHOL (DERMOPLAST) 56 ML CAN TP PRN (16:15)
[2020-12-21] MEDS ORDERED: TETANUS,DIPTH,PERTUSS P/F (BOOSTRIX) 0.5 ML VIAL IM ONE (16:15)
[2020-12-21] MEDS ORDERED: MEASLES,MUMPS,RUBELLA 1 EA INJ SQ ONE (16:15)
[2020-12-21] MEDS: IBUPROFEN 600 MG (MOTRIN) TAB PO SCH ×2 (16:26→22:13)
[2020-12-21] MEDS: ACETAMINOPHEN 500 MG TAB (TYLENOL) PO SCH (20:51)
[2020-12-21] MEDS: DOCUSATE SODIUM 100 MG (COLACE) CAP PO SCH (20:52)
[2020-12-22 04:45] VITALS: BP 134/70
[2020-12-22] MEDS: ACETAMINOPHEN 500 MG TAB (TYLENOL) PO SCH ×3 (04:45→21:47)
[2020-12-22 05:36] LABS: BASOPHILS # (AUTO) 0.1 10^3/uL (0.0-0.1); BASOPHILS % (AUTO) 1 % (0-10); EOSINOPHILS # (AUTO) 0.2 10^3/uL (0.0-0.3); EOSINOPHILS % (AUTO) 1 % (0-10); HEMATOCRIT 31 % (35-52); HEMOGLOBIN 10.2 g/dL (11.5-16.0); LYMPHOCYTES # (AUTO) 2.5 10^3/uL (1.0-4.0); LYMPHOCYTES % (AUTO) 20 % (12-44); MEAN CORPUSCULAR HEMOGLOBIN 25 pg (25-34); MEAN CORPUSCULAR HGB CONC 33 g/dL (32-36); MEAN CORPUSCULAR VOLUME 75 fL (80-99); MEAN PLATELET VOLUME 8.9 fL (9.0-12.2); MONOCYTES # (AUTO) 0.9 10^3/uL (0.0-1.0); MONOCYTES % (AUTO) 7 % (0-12); NEUTROPHILS # (AUTO) 8.9 10^3/uL (1.8-7.8); NEUTROPHILS % (AUTO) 71 % (42-75); PLATELET COUNT 253 10^3/uL (130-400); WHITE BLOOD COUNT 12.5 10^3/uL (4.3-11.0)
[2020-12-22] MEDS: IBUPROFEN 600 MG (MOTRIN) TAB PO SCH ×3 (06:58→17:43)
[2020-12-22 08:39] VITALS: BP 122/76
[2020-12-22] MEDS: DOCUSATE SODIUM 100 MG (COLACE) CAP PO SCH ×2 (08:42→21:46)
--- NOTE | 2020-12-22 10:16 | Progress Note ---
Subjective Subjective/Events-last exam Doing well. Normal pain and lochia. Objective Exam Last Set of Vital Signs Vital Signs Date Time Temp Pulse Resp B/P (MAP) Pulse Ox O2 Delivery O2 Flow Rate FiO2 12/22/20 08:39 36.6 88 16 122/76 (91) 98 Room Air Capillary Refill : Less Than 3 Seconds I&O Intake and Output 12/22/20 00:00 Intake Total 2007.4 ml Balance 2007.4 ml Intake IV Total 2007.4 ml Daily Weight Change No General: Alert, Oriented X3, Cooperative, No Acute Distress Psych/Mental Status: Mood NL Results/Procedures Lab Laboratory Tests 12/22/20 05:15: White Blood Count 12.5H, Red Blood Count 4.06, Hemoglobin 10.2L, Hematocrit 31L, Mean Corpuscular Volume 75L, Mean Corpuscular Hemoglobin 25, Mean Corpuscular Hemoglobin Concent 33, Red Cell Distribution Width 13.0, Platelet Count 253, Mean Platelet Volume 8.9L, Immature Granulocyte % (Auto) 0, Neutrophils (%) (Auto) 71, Lymphocytes (%) (Auto) 20, Monocytes (%) (Auto) 7, Eosinophils (%) (Auto) 1, Basophils (%) (Auto) 1, Neutrophils # (Auto) 8.9H, Lymphocytes # (Auto) 2.5, Monocytes # (Auto) 0.9, Eosinophils # (Auto) 0.2, Basophils # (Auto) 0.1, Immature Granulocyte # (Auto) 0.0 Assessment/Plan Assessment/Plan (1) Normal vaginal delivery Status: Acute Assessment & Plan: PPD #1; following IOL for suspect IUGR GBS+ with adequate antibiotic ppx. Plan DC tomorrow. GAUTAM MCCLAIN DO Dec 22, 2020 10:16
[2020-12-22 12:21] VITALS: BP 123/67
[2020-12-22 17:41] VITALS: BP 116/63
[2020-12-22 20:40] VITALS: BP 127/85
[2020-12-22 23:45] VITALS: BP 138/87
[2020-12-23] MEDS: IBUPROFEN 600 MG (MOTRIN) TAB PO SCH ×2 (00:48→06:15)
[2020-12-23] MEDS: ACETAMINOPHEN 500 MG TAB (TYLENOL) PO SCH ×2 (06:17→09:36)
[2020-12-23] MEDS ORDERED: IBUP-844 PO (07:36)
--- NOTE | 2020-12-23 07:38 | Short Stay Summary ---
Discharge Summary Hospital Course Problems/Dx: (1) Normal vaginal delivery Status: Acute Assessment & Plan: following IOL for suspect IUGR GBS+ with adequate antibiotic ppx. Routine care. Final Diagnosis: see problem list Hospital Course Date of Admission: Dec 21, 2020 at 06:43 Family Physician/Provider: Marya Carr MD Date of Discharge: 12/23/20 Hospital Course: Routine course Labs and Pending Lab Test: Microbiology 12/21/20 Urine Culture - Final, Complete >=3 Gram Positive Isolates Home Meds Active Reported Vitamins ( Vit W-Ca,Fe,FA(<1 mg)) 1 Each Tablet 1 Each PO DAILY Assessment/Pt Instructions Follow up with Dr. Carr in 6wk. Discharge Instructions Discharge Diet: No Restrictions Discharge Physical Examination General Appearance: Alert, Oriented X3, Cooperative Psych/Mental Status: Mood NL Allergies: Coded Allergies: No Known Drug Allergies (Unverified , 12/27/17) Copy Copies To 1: MARYA CARR MD Discharge Summary Date of Admission Dec 21, 2020 at 06:43 Date of Discharge GAUTAM MCCLAIN DO Dec 23, 2020 07:38
[2020-12-23] MEDS: DOCUSATE SODIUM 100 MG (COLACE) CAP PO SCH (09:36)
[2020-12-23 09:45] VITALS: BP 107/64
== END 2020-12-23 11:30 | disposition home or self-care (01) | DRG 807 ==
LOC: LDRP 06:43
PROVIDERS: ADMIT Family Medicine; ATTEND Family Medicine
PROC: 10E0XZZ Delivery of Products of Conception, External Approach (ICD-10-PCS; principal; 2020-12-21)
PROC: 3E033VJ Introduction of Other Hormone into Peripheral Vein, Percutaneous Approach (ICD-10-PCS; 2020-12-21)
DX: O36.5930 Maternal care for other known or suspected poor fetal growth, third trimester, not applicable or unspecified (principal); Z37.0 Single live birth; O99.824 Streptococcus B carrier state complicating childbirth; Z3A.39 39 weeks gestation of pregnancy
CPT/HCPCS: 36415; 81000; 85025; 86850; 86900; 86901; 87088